=== PATIENT | female | born 1960 | race Caucasian/White ===

== ENCOUNTER 2023-07-11 16:10 | Outpatient (BNV) | payer BC, SELFPAY | END 2023-07-14 08:00 | PROVIDERS: Admitting Provider Psychiatry & Neurology Psychiatry; Visit Provider Internal Medicine Cardiovascular Disease | DX: I45.89 Other specified conduction disorders (principal) | CPT/HCPCS: 93010 ==

== ENCOUNTER 2023-07-11 16:10 | Inpatient (IN) | payer BC, SELFPAY ==
--- NOTE | ~2023-07-11 | XR_ITS ---
EXAMINATION: XR HAND, LEFT CLINICAL INFORMATION: Pain, trauma COMPARISON: None TECHNIQUE: 3 views of the hand FINDINGS: No fracture or dislocation. Mild degenerative changes of the distal interphalangeal joints and first interphalangeal joint. No cortical erosion. Soft tissues are unremarkable. XR/XR hand LT 2V IMPRESSION: 1. No fracture or dislocation. 2. Mild degenerative changes of the hand.
[2023-07-11 16:42] VITALS: BP 177/103; PULSE 80; RESP 18; TEMP 36.3; O2SAT 99
[2023-07-11 17:59] VITALS: BMI 25.2
[2023-07-11 18:00] VITALS: BP 161/88; PULSE 68
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
[2023-07-11 19:42] VITALS: BP 135/87; PULSE 78; RESP 18; TEMP 36.5; O2SAT 95
[2023-07-12 02:05] VITALS: BP 161/79; PULSE 71; RESP 18; TEMP 36.3; O2SAT 94
[2023-07-12] MEDS: ARIPiprazole 15 MG TABLET PO (05:31)
[2023-07-12] MEDS: Levothyroxine Sodium 100 MCG TABLET PO (06:23)
[2023-07-12 08:05] VITALS: BP 107/74; PULSE 113; RESP 17; TEMP 36.1; O2SAT 97
[2023-07-12 08:22] LABS: Estimated Average Glucose 108 mg/dL; Hemoglobin A1c % 5.4 % (<6.0)
[2023-07-12 08:37] LABS: Alanine Aminotransferase 40 U/L (0-31); Albumin Level 4.7 g/dL (3.5-5.0); Alkaline Phosphatase 87 U/L (39-117); Anion Gap 16 (12-20); Aspartate Amino Transferase 35 U/L (5-31); Bilirubin Total 0.8 mg/dL (0.0-1.0); Blood Urea Nitrogen 13 mg/dL (9-16); Calcium 10.4 mg/dL (8.4-10.2); Carbon Dioxide 25 mmol/L (22-29); Chloride 106 mmol/L (96-108); Cholesterol 166 mg/dL (<200); Creatinine Clr Calc Pharmacy 60.5; Estimated Glomerular Filt Rate > 60; Glucose Fasting 125 mg/dL (60-99); HDL Cholesterol 77 mg/dL (>40); LDL Cholesterol Calculated 63 mg/dL (<100); Sodium 143 mmol/L (135-145); Total Protein 7.8 g/dL (6.5-8.0); Triglycerides 131 mg/dL (<150)
[2023-07-12 08:52] LABS: Thyroid Stimulating Hormone 16.65 uIU/mL (0.32-4.0)
[2023-07-12 08:55] LABS: Vitamin B12 1400 pg/mL (200-900)
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
[2023-07-12 14:06] LABS: Free T4 (Free Thyroxine) 1.17 ng/dL (0.71-1.85)
--- NOTE | 2023-07-12 18:32 | PC.NURSE ---
Patient has been hypermanic and labile throughout the day. Had two notable outbursts today and refused all medications except her AM abilify. She reported to Social Work this evening that she will refuse all psych medications and the only thing she wants is for her abilify dosage to be increased. Request communicated to XANDER Macias via tiger text.
[2023-07-12 22:22] VITALS: BP 140/87; PULSE 119; RESP 17; TEMP 36.6; O2SAT 98
--- NOTE | 2023-07-13 00:11 | PC.RT ---
pt refused CPAP, will only use humidified
[2023-07-13] MEDS: Levothyroxine Sodium 100 MCG TABLET PO (05:42)
[2023-07-13 07:45] VITALS: BP 149/77; PULSE 99; RESP 18; TEMP 36.6; O2SAT 98
[2023-07-13] MEDS: LORazepam 2 MG/ML VIAL IM (09:18)
[2023-07-13] MEDS: OLANZapine 10 MG VIAL IM (09:18)
--- NOTE | 2023-07-13 09:44 | PC.NURSE ---
Addendum entered by Ирина Lopez RN 07/13/23 12:09: Pt assessed within hour of receiving IM medications. She is calmer, resting comfortable in her room. VSS Original Note: Pt hyperverbal, intrusive, refusing morning medication. playing with her stool in room put feces all over bathroom floor. IM zyprexa 10 mg and IM Ativan 2mg given with effect.
--- NOTE | 2023-07-13 10:21 | PM.EVENT ---
Event Note Date of Service: 07/13/23 Event Note: This morning pt continued to present as intrusive to peers, taking off clothes, smearing feces in her room. Not able to be redirected. Attempting to touch staff. Not accepting PRN medication or scheduled medications. She required Olanzapine 10mg IM and ativan 2mg IM. Pt assessed within hour of receiving IM medications. She is calmer, asleep in room. No difficulties breathing. VS stable. Time Spent With Patient Time: Total time managing care of this patient today ____ minutes.
--- NOTE | 2023-07-13 16:26 | HO.PSYCHPN ---
Documented by User: Nanette Macias NP 07/13/23 16:38 Subjective Subjective Date of Service: 07/13/23 Reason For Visit: Unspecified Bipolar and Related Disorder Subjective Notes: Conditional Voluntary Interim History: Reviewed Dr. Quesada. Patient was given IM medication this morning at 0918. Per Fara Herrera NP note: This morning pt continued to present as intrusive to peers, taking off clothes, smearing feces in her room. Not able to be redirected. Attempting to touch staff. Not accepting PRN medication or scheduled medications. She required Olanzapine 10mg IM and ativan 2mg IM. Pt assessed within hour of receiving IM medications. She is calmer, asleep in room. No difficulties breathing. VS stable. When T/W went to go meet with patient, pt was observed sleeping. Was not awakened d/t need for sleep since patient had reported not sleeping d/t florentin. Medication Compliance: No Review of Systems Constitutional: Reports as per HPI Eyes: Reports as per HPI Reports as per HPI Cardiovascular: Reports as per HPI Respiratory: Reports as per HPI Gastrointestinal: Reports as per HPI Musculoskeletal: Reports as per HPI Skin/Breast: Reports as per HPI Reports as per HPI Psychiatric: Reports as per HPI Endocrine: Reports as per HPI Hematologic/Lymphatic: Reports as per HPI Allergic/Immunologic: Reports as per HPI Mental Status Exam Mental Status Exam Narrative: per nursing report, pt presents hyperverbal, pressured and rapid speech, tangential, intrusive.disoganized. Diagnostics Vital Signs (24Hr): Vital Signs - 24 hr 07/12/23 22:22 07/13/23 07:45 Temperature 97.9 F 98 F Pulse Rate 119 H 99 Respiratory Rate 17 18 Blood Pressure 140/87 H 149/77 H Pulse Oximetry 98 98 Oxygen Delivery Method Room Air Room Air BMI result Body Mass Index 25.2 Labs 07/12/23 07:53 Labs: Laboratory Results - last 48 hr 07/12/23 07:53 Sodium 143 Potassium 4.0 Chloride 106 Carbon Dioxide 25 Anion Gap 16 BUN 13 Creatinine 0.91 Estim Creat Clear Calc 60.5 Estimated GFR > 60 Fasting Glucose 125 H Estimat Average Glucose 108 Hemoglobin A1c % 5.4 Calcium 10.4 H Total Bilirubin 0.8 AST 35 H ALT 40 H Alkaline Phosphatase 87 Total Protein 7.8 Albumin 4.7 Triglycerides 131 Cholesterol 166 LDL Cholesterol, Calc 63 HDL Cholesterol 77 Vitamin B12 1400 H TSH 16.65 H Free T4 1.17 Medications Medications Current Medications Acetaminophen (Acetaminophen 325 Mg Tablet) 650 mg PO Q6H PRN PRN Reason: Headache/Pain Mild Scale (1-3) Al Hydroxide/Mg Hydroxide (Magnesium Hydrox/Alum Hydrox 30 Ml Oral.Susp) 30 ml PO Q6H PRN PRN Reason: Heartburn/Nausea Albuterol Sulfate (Albuterol Sulfate 90 Mcg 8 Gm Inhaler) 2 puff INHALE Q4H PRN PRN Reason: Wheezing Amlodipine Besylate (Amlodipine Besylate 2.5 Mg Tablet) 2.5 mg PO DAILY [facility]; Protocol Last Admin: 07/13/23 09:20 Dose: Not Given Aripiprazole (Aripiprazole 15 Mg Tablet) 15 mg PO DAILY [facility] Last Admin: 07/13/23 09:21 Dose: Not Given Fluticasone/Umeclidinium/Vilanterol (Fluticasone/Umeclidinium/Vilanterol 200/62.5/25 Blst.W.Dev) 1 puff INHALE RDAILY [facility] Last Admin: 07/13/23 09:19 Dose: Not Given Hydroxyzine HCl (Hydroxyzine Hcl 25 Mg Tablet) 25 mg PO Q6H PRN PRN Reason: Anxiety Levothyroxine Sodium (Levothyroxine Sodium 100 Mcg Tablet) 100 mcg PO DAILY@0600 [facility] Last Admin: 07/13/23 05:42 Dose: 100 mcg Loratadine (Loratadine 10 Mg Tablet) 10 mg PO DAILY [facility] Last Admin: 07/13/23 09:21 Dose: Not Given Lorazepam (Lorazepam 0.5 Mg Tablet) 0.5 mg PO BID [facility] Last Admin: 07/13/23 09:21 Dose: Not Given Magnesium Hydroxide (Milk Of Magnesia 30 Ml Oral.Susp) 30 ml PO DAILY PRN PRN Reason: Constipation Oxcarbazepine (Oxcarbazepine 150 Mg Tablet) 150 mg PO BID [facility] Last Admin: 07/13/23 09:21 Dose: Not Given Risperidone (Risperidone 0.5 Mg Tablet) 0.5 mg PO BID [facility] Last Admin: 07/13/23 09:22 Dose: Not Given Trazodone HCl (Trazodone Hcl 50 Mg Tablet) 50 mg PO BEDTIME MRX1 PRN PRN Reason: Insomnia Allergies Allergies Allergy/AdvReac Type Severity Reaction Status Date / Time Penicillins Allergy Vomiting Verified 07/11/23 17:28 phenytoin Allergy Unknown Verified 07/11/23 17:30 rosuvastatin Allergy Chest Pain Verified 07/11/23 17:32 aspirin AdvReac Gastrointestinal Verified 07/11/23 17:33 Upset Assessment & Plan Assessment & Plan (1) Bipolar disorder: Code(s): F31.9 - Bipolar disorder, unspecified (2) PTSD (post-traumatic stress disorder): Status: Acute Code(s): F43.10 - Post-traumatic stress disorder, unspecified (3) Severe manic bipolar 1 disorder with psychotic behavior: Status: Acute Code(s): F31.2 - Bipolar disorder, current episode manic severe with psychotic features Plan Patient is a 63 year old female with hx of Bipolar d/o and PTSD who self presented to [facility] ER d/t disorganized thinking secondary to florentin. Plan: CV 15 minute safety checks continue home medications discharge planning Start: Ativan 0.5mg PO BID Risperidal 0.5mg PO BID Trileptal 150mg PO BID 07/12: Patient was given IM medication this morning at 0918. Per Fara Herrera NP note: This morning pt continued to present as intrusive to peers, taking off clothes, smearing feces in her room. Not able to be redirected. Attempting to touch staff. Not accepting PRN medication or scheduled medications. She required Olanzapine 10mg IM and ativan 2mg IM. Pt assessed within hour of receiving IM medications. She is calmer, asleep in room. No difficulties breathing. VS stable. When T/W went to go meet with patient, pt was observed sleeping. Was not awakened d/t need for sleep since patient had reported not sleeping d/t florentin. Continue to encourage medication compliance. Patient educated on: other (unable to educate d/t pt sleeping) Informed Consent: further education needed Reason for continued inpatient stay Substantial Risk for: med/psych decompensation Time Spent With Patient Time: Total time managing care of this patient today _15___ minutes. Documented by User: Livan Quesada MD 07/13/23 22:26 Subjective Subjective Reason For Visit: Unspecified Bipolar and Related Disorder Diagnostics Labs 07/12/23 07:53 Assessment & Plan Assessment & Plan (1) Bipolar disorder: Code(s): F31.9 - Bipolar disorder, unspecified (2) PTSD (post-traumatic stress disorder): Status: Acute Code(s): F43.10 - Post-traumatic stress disorder, unspecified (3) Severe manic bipolar 1 disorder with psychotic behavior: Status: Acute Code(s): F31.2 - Bipolar disorder, current episode manic severe with psychotic features Plan Patient is a 63 year old female with hx of Bipolar d/o and PTSD who self presented to [facility] ER d/t disorganized thinking secondary to florentin. Plan: CV 15 minute safety checks continue home medications discharge planning Start: Ativan 0.5mg PO BID Risperidal 0.5mg PO BID Trileptal 150mg PO BID 07/12: Patient was given IM medication this morning at 0918. Per Fara Herrera NP note: This morning pt continued to present as intrusive to peers, taking off clothes, smearing feces in her room. Not able to be redirected. Attempting to touch staff. Not accepting PRN medication or scheduled medications. She required Olanzapine 10mg IM and ativan 2mg IM. Pt assessed within hour of receiving IM medications. She is calmer, asleep in room. No difficulties breathing. VS stable. When T/W went to go meet with patient, pt was observed sleeping. Was not awakened d/t need for sleep since patient had reported not sleeping d/t florentin. Continue to encourage medication compliance. 07/13/23 Call placed to pts last know psych prvider pt unable to give hx tx response most likely will need lithium or dep for severe florentin was refusing to take meds that woukld need blood levels if willing to take might benefit from up to 30 mg did respond to olanzapine inj Reason for continued inpatient stay Substantial Risk for: inability to function and rapid decompensation Time Spent With Patient Time: Total time managing care of this patient today _25__ minutes.
[2023-07-13 18:00] VITALS: BP 124/76; PULSE 110; RESP 16; TEMP 36.4; O2SAT 97
[2023-07-13] MEDS: diphenhydrAMINE HCL 25 MG CAPSULE PO (22:08)
[2023-07-13] MEDS: Benztropine Mesylate 1 MG TABLET PO (22:08)
--- NOTE | 2023-07-13 22:18 | PC.NURSE ---
provider Nanette Macias contacted notified 1. Pt. has c/o of EPS 2. states that her tongue is heavy and she is having difficulty speaking. 3. pt is managing oral secreations/no drooling. 4. she is hyperverbal talking incessantly 5. she has a flight of ideas 6. she is presenting as manic 7. she has refused her scheduled medications trileptal/ativan/risperdal. 8. pt states medications cause resp depression. plan 1. benedryl 50 mg po now 2. cogentin 1 mg po now.
--- NOTE | 2023-07-13 23:04 | PC.NURSE ---
PT IS IN THE [place]. SHE IS CONTINUOUSLY TALKING. SHE IS BEING DISRUPTIVE TO PATIENTS AND STAFF. HER VOICE IS LOUD AND RAMBLING. SHE APPROACHES DIFFERENT NURSES AND ASKS THE SAME QUESTIONS REPEATEDLY ABOUT THE MEDICATIONS WHICH WERE ADMINISTERED TO HER. SHE HAS A RANT ABOUT THE SUBSTANDARD CARE SHE CLAIMS SHE IS RECEIVING. PT HAS A SMALL JENNA PAD WHICH SHE IS DOCUMENTING EVERYTHING THAT IS SAID TO HER. PT IS NOT REDIRECTABLE. .
[2023-07-14] MEDS: ARIPiprazole 15 MG TABLET PO (04:32)
[2023-07-14] MEDS: Levothyroxine Sodium 100 MCG TABLET PO (04:32)
--- NOTE | 2023-07-14 04:56 | PC.NURSE ---
pt has presented as hyperverbal and manifesting a flight of ideas. her mood is labile and she is guilty of staff splitting. she exited her bed and laid with a blanket on the bathroom floor. she has multiple somatic fixations. she is worrying about her hips/airway/and bowels. she had a large bowel movement which she coached along with a digital disimpaction. pt is insistent that a stool specimen be obtained and send to the lab. with great effort pt is persuaded to take her 0900 abilify now. she refuses tylenol and is requesting that a homeopathic pain medicine be used as a substitute.
--- NOTE | 2023-07-14 08:00 | ECG_ITS ---
Test Reason : QTC CHECK Blood Pressure : / mmHG Vent. Rate : 072 BPM Atrial Rate : 072 BPM P-R Int : 138 ms QRS Dur : 072 ms QT Int : 378 ms P-R-T Axes : 053 015 043 degrees QTc Int : 413 ms Normal sinus rhythm Normal ECG No previous ECGs available Referred By: Livan Quesada Electronically Signed By:ADRYAN AVITIA MD
--- NOTE | 2023-07-14 09:04 | PM.EVENT ---
Event Note Date of Service: 07/14/23 Event Note: Pt presents as loud, yelling, undressing, unable to be redirected, crawling around the floor, banging on tables, hurting both hands, not stopping with verbal redirection. Not accepting oral medications. Ordered Olanzpapine 10mg IM, ativan 2mg IM. Time Spent With Patient Time: Total time managing care of this patient today ____ minutes.
[2023-07-14] MEDS: LORazepam 2 MG/ML VIAL IM (09:18)
[2023-07-14] MEDS: OLANZapine 10 MG VIAL IM (09:18)
--- NOTE | 2023-07-14 09:36 | PC.NURSE ---
Patient refused morning medications. Observed in room on floor yelling and kicking wall. Also observed in hallway on stomach pulling herself along with arms. Chemically restrained at 0918 with Olanzapine 10mg and Ativan 2 mg. Patient tolerated well. Refused vital signs. Security present for administration.
[2023-07-14] MEDS: Acetaminophen 325 MG TABLET 650 MG PO (11:00)
--- NOTE | 2023-07-14 12:35 | PC.NURSE ---
Patient observed to be calm and cooperative following chemical restraint. Utilizing WC for C/O hip pain.
--- NOTE | 2023-07-14 13:36 | HO.PSYCHPN ---
Subjective Subjective Date of Service: 07/14/23 Reason For Visit: Unspecified Bipolar and Related Disorder Interim History: The patient seen psychiatric follow-up she is sedated sleeping when seen for much of the day. The patient had a dose I am olanzapine secondary to severe agitation and aggression. Call was placed to patient's outpatient psychiatrist no returned has been received patient had been Abilify 15 mg daily Medication Compliance: No Side effects from medications: Yes (sedated) Mental Status Exam Mental Status Exam Narrative: Patient lying in bed breathing comfortably not overly agitated or combative when seen No abnormal movements noted unable to evaluate issues related to suicide or homicidality Diagnostics Vital Signs (24Hr): Vital Signs - 24 hr 07/13/23 18:00 Temperature 97.6 F Pulse Rate 110 H Respiratory Rate 16 Blood Pressure 124/76 Pulse Oximetry 97 Oxygen Delivery Method Room Air BMI result Body Mass Index 25.2 Labs 07/12/23 07:53 Labs: Laboratory Results - last 48 hr 07/12/23 07:53 Free T4 1.17 Medications Medications Current Medications Acetaminophen (Acetaminophen 325 Mg Tablet) 650 mg PO Q6H PRN PRN Reason: Headache/Pain Mild Scale (1-3) Last Admin: 07/14/23 11:00 Dose: 650 mg Al Hydroxide/Mg Hydroxide (Magnesium Hydrox/Alum Hydrox 30 Ml Oral.Susp) 30 ml PO Q6H PRN PRN Reason: Heartburn/Nausea Albuterol Sulfate (Albuterol Sulfate 90 Mcg 8 Gm Inhaler) 2 puff INHALE Q4H PRN PRN Reason: Wheezing Amlodipine Besylate (Amlodipine Besylate 2.5 Mg Tablet) 2.5 mg PO DAILY [facility]; Protocol Last Admin: 07/14/23 09:40 Dose: Not Given Aripiprazole (Aripiprazole 20 Mg Tablet) 20 mg PO DAILY [facility] Last Admin: 07/14/23 09:41 Dose: Not Given Benztropine Mesylate (Benztropine Mesylate 1 Mg Tablet) 1 mg PO BID PRN PRN Reason: Extrapyramidal Effects Last Admin: 07/13/23 22:08 Dose: 1 mg Diphenhydramine HCl (Diphenhydramine Hcl 25 Mg Capsule) 25 mg PO Q6H PRN PRN Reason: EPS Last Admin: 07/13/23 22:08 Dose: 25 mg Divalproex Sodium (Divalproex Sodium Er 500 Mg Tab.Er.24h) 500 mg PO DAILY [facility] Last Admin: 07/14/23 09:40 Dose: Not Given Fluticasone/Umeclidinium/Vilanterol (Fluticasone/Umeclidinium/Vilanterol 200/62.5/25 Blst.W.Dev) 1 puff INHALE RDAILY [facility] Last Admin: 07/14/23 09:40 Dose: Not Given Hydroxyzine HCl (Hydroxyzine Hcl 25 Mg Tablet) 25 mg PO Q6H PRN PRN Reason: Anxiety Levothyroxine Sodium (Levothyroxine Sodium 100 Mcg Tablet) 100 mcg PO DAILY@0600 [facility] Last Admin: 07/14/23 04:32 Dose: 100 mcg Loratadine (Loratadine 10 Mg Tablet) 10 mg PO DAILY [facility] Last Admin: 07/14/23 09:40 Dose: Not Given Lorazepam (Lorazepam 0.5 Mg Tablet) 0.5 mg PO BID [facility] Last Admin: 07/14/23 09:40 Dose: Not Given Magnesium Hydroxide (Milk Of Magnesia 30 Ml Oral.Susp) 30 ml PO DAILY PRN PRN Reason: Constipation Olanzapine (Olanzapine Odt 10 Mg Tab.Rapdis) 10 mg TRANSLINGU BID PRN PRN Reason: florentin Trazodone HCl (Trazodone Hcl 50 Mg Tablet) 50 mg PO BEDTIME MRX1 PRN PRN Reason: Insomnia Allergies Allergies Allergy/AdvReac Type Severity Reaction Status Date / Time Penicillins Allergy Vomiting Verified 07/11/23 17:28 phenytoin Allergy Unknown Verified 07/11/23 17:30 rosuvastatin Allergy Chest Pain Verified 07/11/23 17:32 aspirin AdvReac Gastrointestinal Verified 07/11/23 17:33 Upset Assessment & Plan Assessment & Plan (1) Bipolar disorder: Qualifiers: Active/Remission status: currently active Current bipolar episode type: manic Current episode severity: severe Psychotic features: with psychotic features Qualified Code(s): F31.2 - Bipolar disorder, current episode manic severe with psychotic features Code(s): F31.9 - Bipolar disorder, unspecified (2) PTSD (post-traumatic stress disorder): Status: Acute Code(s): F43.10 - Post-traumatic stress disorder, unspecified Plan Patient is a 63 year old female with hx of Bipolar d/o and PTSD who self presented to [facility] ER d/t disorganized thinking secondary to florentin. Plan: CV 15 minute safety checks continue home medications discharge planning Start: Ativan 0.5mg PO BID Risperidal 0.5mg PO BID Trileptal 150mg PO BID 07/14/2023 Patient seen psychiatric follow-up had required IM olanzapine secondary to severe manic agitation and irritability. Encourage p.o. Julian and Anahi. Trying to obtain records from patient's prior treatment Trying to establish therapeutic relationship when possible Informed Consent: further education needed Reason for continued inpatient stay Substantial Risk for: inability to function, rapid decompensation and med/psych decompensation Time Spent With Patient Time: Total time managing care of this patient today _35___ minutes.
[2023-07-14 18:00] VITALS: BP 106/78; PULSE 97; RESP 18; TEMP 36.2; O2SAT 97
[2023-07-14] MEDS: Benztropine Mesylate 1 MG TABLET PO (22:14)
[2023-07-14] MEDS: Fluticasone/Umeclidinium/Vilanterol 200/62.5/25 BLST.W.DEV 1 PUFF INHALE (22:25)
[2023-07-15] MEDS: Ibuprofen 400 MG TABLET 800 MG PO ×2 (01:22→21:44)
[2023-07-15] MEDS: hydrOXYzine HCL 25 MG TABLET PO (02:57)
[2023-07-15] MEDS: Levothyroxine Sodium 100 MCG TABLET PO (05:10)
[2023-07-15] MEDS: ARIPiprazole 20 MG TABLET PO (05:11)
[2023-07-15] MEDS: Acetaminophen 325 MG TABLET 650 MG PO (05:18)
[2023-07-15 07:55] VITALS: BP 143/92; PULSE 98; RESP 20; TEMP 36.7; O2SAT 99
[2023-07-15 08:06] LABS: Free T4 (Free Thyroxine) 1.37 ng/dL (0.71-1.85)
--- NOTE | 2023-07-15 10:06 | P.PNPSI_ITS ---
Subjective Subjective Date of Service: 07/15/23 Reason For Visit: Unspecified Bipolar and Related Disorder Subjective Notes: Conditional Voluntary Interim History: Pt continues to present as labile, flight of ideas, dificult to follow due to florentin. Pt reports she has purpose given by God. She refuses adjustment to psych meds to better target florentin. She focuses on variety of random medical concerns from her stool, to her sputum. VS stable. disruptive at times. Review of Systems Review of Systems Unable to ascertain trustworthy ROS due to patient's mental status/florentin. Constitutional: Reports as per HPI Eyes: Reports as per HPI Reports as per HPI Cardiovascular: Reports as per HPI Respiratory: Reports as per HPI Gastrointestinal: Reports as per HPI Musculoskeletal: Reports as per HPI Skin/Breast: Reports as per HPI Reports as per HPI Psychiatric: Reports as per HPI Endocrine: Reports as per HPI Hematologic/Lymphatic: Reports as per HPI Allergic/Immunologic: Reports as per HPI Diagnostics Vital Signs (24Hr): Vital Signs - 24 hr 07/14/23 18:00 Temperature 97.2 F Pulse Rate 97 Respiratory Rate 18 Blood Pressure 106/78 Pulse Oximetry 97 Oxygen Delivery Method Room Air BMI result Body Mass Index 25.2 Labs 07/12/23 07:53 Labs: Laboratory Results - last 48 hr 07/15/23 07:18 Free T4 1.37 Medications Medications Current Medications Acetaminophen (Acetaminophen 325 Mg Tablet) 650 mg PO Q6H PRN PRN Reason: Headache/Pain Mild Scale (1-3) Last Admin: 07/15/23 05:18 Dose: 650 mg Al Hydroxide/Mg Hydroxide (Magnesium Hydrox/Alum Hydrox 30 Ml Oral.Susp) 30 ml PO Q6H PRN PRN Reason: Heartburn/Nausea Albuterol Sulfate (Albuterol Sulfate 90 Mcg 8 Gm Inhaler) 2 puff INHALE Q4H PRN PRN Reason: Wheezing Amlodipine Besylate (Amlodipine Besylate 2.5 Mg Tablet) 2.5 mg PO DAILY [facility]; Protocol Last Admin: 07/15/23 09:18 Dose: Not Given Aripiprazole (Aripiprazole 20 Mg Tablet) 20 mg PO DAILY [facility] Last Admin: 07/15/23 05:11 Dose: 20 mg Benztropine Mesylate (Benztropine Mesylate 1 Mg Tablet) 1 mg PO BID PRN PRN Reason: Extrapyramidal Effects Last Admin: 07/14/23 22:14 Dose: 1 mg Diphenhydramine HCl (Diphenhydramine Hcl 25 Mg Capsule) 25 mg PO Q6H PRN PRN Reason: EPS Last Admin: 07/13/23 22:08 Dose: 25 mg Divalproex Sodium (Divalproex Sodium Er 500 Mg Tab.Er.24h) 500 mg PO DAILY [facility] Last Admin: 07/15/23 09:18 Dose: Not Given Fluticasone/Umeclidinium/Vilanterol (Fluticasone/Umeclidinium/Vilanterol 200/62.5/25 Blst.W.Dev) 1 puff INHALE RDAILY [facility] Last Admin: 07/15/23 09:18 Dose: Not Given Hydroxyzine HCl (Hydroxyzine Hcl 25 Mg Tablet) 25 mg PO Q6H PRN PRN Reason: Anxiety Last Admin: 07/15/23 02:57 Dose: 25 mg Levothyroxine Sodium (Levothyroxine Sodium 100 Mcg Tablet) 100 mcg PO DAILY@0600 [facility] Last Admin: 07/15/23 05:10 Dose: 100 mcg Loratadine (Loratadine 10 Mg Tablet) 10 mg PO DAILY [facility] Last Admin: 07/15/23 09:18 Dose: Not Given Lorazepam (Lorazepam 0.5 Mg Tablet) 0.5 mg PO BID [facility] Last Admin: 07/15/23 09:18 Dose: Not Given Magnesium Hydroxide (Milk Of Magnesia 30 Ml Oral.Susp) 30 ml PO DAILY PRN PRN Reason: Constipation Olanzapine (Olanzapine Odt 10 Mg Tab.Rapdis) 10 mg TRANSLINGU BID PRN PRN Reason: florentin Trazodone HCl (Trazodone Hcl 50 Mg Tablet) 50 mg PO BEDTIME MRX1 PRN PRN Reason: Insomnia Allergies Allergies Allergy/AdvReac Type Severity Reaction Status Date / Time Penicillins Allergy Vomiting Verified 07/11/23 17:28 phenytoin Allergy Unknown Verified 07/11/23 17:30 rosuvastatin Allergy Chest Pain Verified 07/11/23 17:32 aspirin AdvReac Gastrointestinal Verified 07/11/23 17:33 Upset Assessment & Plan Assessment & Plan (1) Bipolar disorder: Qualifiers: Active/Remission status: currently active Current bipolar episode type: manic Current episode severity: severe Psychotic features: with psychotic features Qualified Code(s): F31.2 - Bipolar disorder, current episode manic severe with psychotic features Code(s): F31.9 - Bipolar disorder, unspecified (2) PTSD (post-traumatic stress disorder): Status: Acute Code(s): F43.10 - Post-traumatic stress disorder, unspecified Plan Patient is a 63 year old female with hx of Bipolar d/o and PTSD who self presented to [facility] ER d/t disorganized thinking secondary to florentin. Plan: 07/14 labile and disorganized, not open to adjustments in psychotropic medications. Reason for continued inpatient stay Substantial Risk for: inability to function Time Spent With Patient Time: Total time managing care of this patient today ____ minutes.
--- NOTE | 2023-07-15 16:59 | PC.NURSE ---
Pt reports she cant eat bread because she cannot swallow. Insole And Outsole Preparer noticed pt eating 1/2 of egg salad sandwich,without any difficulty and observed her putting a cookie and brownie in her pockets.
[2023-07-15 18:00] VITALS: BP 153/90; PULSE 88; RESP 18; TEMP 36.6; O2SAT 100
--- NOTE | 2023-07-15 22:25 | PC.NURSE ---
Addendum entered by Benedict Nixon RN 07/16/23 02:04: pt states events of injury to left hand occurred as the following. 1. pt experiencing extreme vertigo room spinning like an amusement park ride. 2. pt attempted to call nursing staff 3. call cleaning not working 4. pt slapped bed railing which was in an up right position to summon staff. 5. left hand suffered injury d/t trauma from slapping railing. pt had sudden c/o eps symptoms-tongue swelling and difficulty speaking-plan 1. cogentin 1 mg po 2. benedryl 25 mg po pt stating that she has an inflammatory condition and needs prednisone. her voice is hoarse and she is frequently expectorating small amounts of light nichols phlegm. pt states that the eps is decreasing. Original Note: pt found in room wandering about. she is talking continuously. content of speech is a flight of ideas. her main focus tonight deals with somatic complainants. she has pain in both her hips. she feels that her liver is getting larger and that there is a blockage in her intestine. she states that she injured her left hand punching the beds side rails. in a sudden movement pt removes a sealed fruit cup hidden in her night stand with feces. pt is convinced that there are seeds thriving in her stool. she has also saved a piece of stool in her toilet. pt is refusing schedule medications depakote and ativan. she states that she wants it documented that she has never taken these meds and they will most likely cause EPS. plan dr davison notified 1. pts musculoskeletal pain 2. pt has c/o of left hand pain post punch to side rail 3. pt has continous fixation with her stool be contaminated with seeds- plan a. ibuprofen 800 mg po stat b. will send stool spcimen for panel 3. xray left hand in the am.
[2023-07-16] MEDS: diphenhydrAMINE HCL 25 MG CAPSULE PO (01:53)
[2023-07-16] MEDS: Benztropine Mesylate 1 MG TABLET PO (01:53)
[2023-07-16 08:56] VITALS: BP 139/90; PULSE 106; RESP 16; TEMP 36.4; O2SAT 98
[2023-07-16 09:22] LABS: Adenovirus F 40/41 Not Detected (Not Detect.); Astrovirus Not Detected (Not Detect.); Campylobacter Not Detected (Not Detect.); Cryptosporidium Not Detected (Not Detect.); Cyclospora cayetanensis Not Detected (Not Detect.); E. coli EAEC Not Detected (Not Detect.); E. coli EPEC Not Detected (Not Detect.); E. coli ETEC Not Detected (Not Detect.); E. coli STEC Not Detected (Not Detect.); Entamoeba histolytica Not Detected (Not Detect.); Giardia lamblia Not Detected (Not Detect.); Norovirus GI/GII Not Detected (Not Detect.); Plesiomonas shigelloides Not Detected (Not Detect.); Rotavirus A Not Detected (Not Detect.); Salmonella Not Detected (Not Detect.); Sapovirus Not Detected (Not Detect.); Shigella sp./EIEC Not Detected (Not Detect.); Vibrio Not Detected (Not Detect.); Vibrio Cholerae Not Detected (Not Detect.); Yersinia enterocolitica Not Detected (Not Detect.)
[2023-07-16] MEDS: ARIPiprazole 20 MG TABLET PO (09:45)
[2023-07-16] MEDS: Fluticasone/Umeclidinium/Vilanterol 200/62.5/25 BLST.W.DEV 1 PUFF INHALE (09:50)
--- NOTE | 2023-07-16 13:30 | HO.PSYCHPN ---
Subjective Subjective Date of Service: 07/16/23 Reason For Visit: Unspecified Bipolar and Related Disorder Interim History: Pt continues to present as labile, flight of ideas, dificult to follow due to florentin. Pt yelling at staff, stating that she is dying. VS stable. She states proof of her medical illness is her sputum. her o2sat is stable on room air. Pt calling family member, asking them to call 911 and have ambulance send to the hospital. She reports she is at [facility]! Attempts to talk with pt about appropriate medication for bipolar treatment are not successful and pt continues to refuse mood stabilizer or any other antipsychotic. Review of Systems Review of Systems Unable to ascertain trustworthy ROS due to patient's mental status/florentin. Constitutional: Reports as per HPI Eyes: Reports as per HPI Reports as per HPI Cardiovascular: Reports as per HPI Respiratory: Reports as per HPI Gastrointestinal: Reports as per HPI Musculoskeletal: Reports as per HPI Skin/Breast: Reports as per HPI Reports as per HPI Psychiatric: Reports as per HPI Endocrine: Reports as per HPI Hematologic/Lymphatic: Reports as per HPI Allergic/Immunologic: Reports as per HPI Mental Status Exam Mental Status Exam Narrative: Appearance: wearing hospital gown, fair hygiene, in NAD behavior: guarded, irritable Psychomotor: intermittently agitated Speech: mumbles at times, pressured and hyperverbal, spontaneous TP: flight of ideas TC: somatic concerns, no insight into mental illness Mood: sick Affect: labile SI: denies HI: none VH/AH: none Delusions: oriental orthodox and somatic preoccupation Insight/judgment: impaired x 2 memory/cog: alert, not oriented to situation. Diagnostics Vital Signs (24Hr): Vital Signs - 24 hr 07/15/23 18:00 07/16/23 08:56 Temperature 97.8 F 97.5 F Pulse Rate 88 106 H Respiratory Rate 18 16 Blood Pressure 153/90 H 139/90 H Pulse Oximetry 100 98 Oxygen Delivery Method Room Air Room Air BMI result Body Mass Index 25.2 Labs 07/12/23 07:53 Labs: Laboratory Results - last 48 hr 07/15/23 07/15/23 07:18 22:00 Free T4 1.37 Stl C. cayetanensis PCR Not Detected Stool Rotavirus A PCR Not Detected Stl Adenov F 40/41 PCR Not Detected Stool Astrovirus (PCR) Not Detected Stool Campylobacter PCR Not Detected Stool Cryptosporidium PCR Not Detected Stl Sh Tox Pr E STEC PCR Not Detected Stool E coli O157 PCR Not applicable Stl Enterotoxigenic E PCR Not Detected Stool EPEC (PCR) Not Detected Stool EAEC (PCR) Not Detected Stl E. histolytica PCR Not Detected Stool Giardia Lamblia PCR Not Detected Stl P. shigelloides PCR Not Detected Stool Salmonella PCR Not Detected Stool Sapovirus (PCR) Not Detected Stl Shigella/EIEC PCR Not Detected St Y.enterocolitica PCR Not Detected Stool Vibrio (PCR) Not Detected Stl Vibrio cholerae PCR Not Detected Stl Norovirus GI/GII PCR Not Detected Imaging Radiology Impressions: ITS Impressions Hand X-Ray 07/16/23 08:53 IMPRESSION: 1. No fracture or dislocation. 2. Mild degenerative changes of the hand. Medications Medications Current Medications Acetaminophen (Acetaminophen 325 Mg Tablet) 650 mg PO Q6H PRN PRN Reason: Headache/Pain Mild Scale (1-3) Last Admin: 07/15/23 05:18 Dose: 650 mg Al Hydroxide/Mg Hydroxide (Magnesium Hydrox/Alum Hydrox 30 Ml Oral.Susp) 30 ml PO Q6H PRN PRN Reason: Heartburn/Nausea Albuterol Sulfate (Albuterol Sulfate 90 Mcg 8 Gm Inhaler) 2 puff INHALE Q4H PRN PRN Reason: Wheezing Amlodipine Besylate (Amlodipine Besylate 2.5 Mg Tablet) 2.5 mg PO DAILY [facility]; Protocol Last Admin: 07/16/23 09:50 Dose: Not Given Aripiprazole (Aripiprazole 20 Mg Tablet) 20 mg PO DAILY [facility] Last Admin: 07/16/23 09:45 Dose: 20 mg Benztropine Mesylate (Benztropine Mesylate 1 Mg Tablet) 1 mg PO BID PRN PRN Reason: Extrapyramidal Effects Last Admin: 07/16/23 01:53 Dose: 1 mg Diphenhydramine HCl (Diphenhydramine Hcl 25 Mg Capsule) 25 mg PO Q6H PRN PRN Reason: EPS Last Admin: 07/16/23 01:53 Dose: 25 mg Divalproex Sodium (Divalproex Sodium Er 500 Mg Tab.Er.24h) 500 mg PO BID [facility] Last Admin: 07/16/23 09:50 Dose: Not Given Fluticasone/Umeclidinium/Vilanterol (Fluticasone/Umeclidinium/Vilanterol 200/62.5/25 Blst.W.Dev) 1 puff INHALE RDAILY [facility] Last Admin: 07/16/23 09:50 Dose: 1 puff Hydroxyzine HCl (Hydroxyzine Hcl 25 Mg Tablet) 25 mg PO Q6H PRN PRN Reason: Anxiety Last Admin: 07/15/23 02:57 Dose: 25 mg Ibuprofen (Ibuprofen 400 Mg Tablet) 800 mg PO Q8H PRN PRN Reason: Pain, Moderate(Pain Scale 4-6) Levothyroxine Sodium (Levothyroxine Sodium 100 Mcg Tablet) 100 mcg PO DAILY@0600 [facility] Last Admin: 07/16/23 05:30 Dose: Not Given Loratadine (Loratadine 10 Mg Tablet) 10 mg PO DAILY [facility] Last Admin: 07/16/23 09:50 Dose: Not Given Lorazepam (Lorazepam 0.5 Mg Tablet) 0.5 mg PO BID [facility] Last Admin: 07/16/23 09:50 Dose: Not Given Magnesium Hydroxide (Milk Of Magnesia 30 Ml Oral.Susp) 30 ml PO DAILY PRN PRN Reason: Constipation Olanzapine (Olanzapine Odt 10 Mg Tab.Rapdis) 10 mg TRANSLINGU BID PRN PRN Reason: florentin Trazodone HCl (Trazodone Hcl 50 Mg Tablet) 50 mg PO BEDTIME MRX1 PRN PRN Reason: Insomnia Allergies Allergies Allergy/AdvReac Type Severity Reaction Status Date / Time Penicillins Allergy Vomiting Verified 07/11/23 17:28 phenytoin Allergy Unknown Verified 07/11/23 17:30 rosuvastatin Allergy Chest Pain Verified 07/11/23 17:32 aspirin AdvReac Gastrointestinal Verified 07/11/23 17:33 Upset Assessment & Plan Assessment & Plan (1) Bipolar disorder: Qualifiers: Active/Remission status: currently active Current bipolar episode type: manic Current episode severity: severe Psychotic features: with psychotic features Qualified Code(s): F31.2 - Bipolar disorder, current episode manic severe with psychotic features Code(s): F31.9 - Bipolar disorder, unspecified (2) PTSD (post-traumatic stress disorder): Status: Acute Code(s): F43.10 - Post-traumatic stress disorder, unspecified Plan Patient is a 63 year old female with hx of Bipolar d/o and PTSD who self presented to [facility] ER d/t disorganized thinking secondary to florentin. Plan: 1. pt continues to present as labile, disorganized. not accepting mood stabilizer or changes in medications. intrusive, loud. Reason for continued inpatient stay Substantial Risk for: inability to function Time Spent With Patient Time: Total time managing care of this patient today ____ minutes.
[2023-07-16 18:00] VITALS: BP 149/100; PULSE 113; RESP 18; TEMP 36.6; O2SAT 98
[2023-07-17] MEDS: diphenhydrAMINE HCL 25 MG CAPSULE PO ×2 (00:32→08:08)
[2023-07-17] MEDS: traZODone HCL 50 MG TABLET PO (00:32)
[2023-07-17] MEDS: hydrOXYzine HCL 25 MG TABLET PO (00:32)
[2023-07-17] MEDS: Ibuprofen 400 MG TABLET 800 MG PO (00:37)
[2023-07-17 03:51] VITALS: BP 144/79; PULSE 93; O2SAT 98
[2023-07-17] MEDS: Levothyroxine Sodium 100 MCG TABLET PO (05:09)
[2023-07-17 08:01] VITALS: BP 119/76; PULSE 110; RESP 16; TEMP 36.3; O2SAT 96
[2023-07-17] MEDS: ARIPiprazole 20 MG TABLET PO (08:04)
[2023-07-17] MEDS: Fluticasone/Umeclidinium/Vilanterol 200/62.5/25 BLST.W.DEV 1 PUFF INHALE (08:07)
[2023-07-17] MEDS: Haloperidol Lactate 5 MG/ML VIAL IM (09:14)
[2023-07-17] MEDS: LORazepam 2 MG/ML VIAL IM ×2 (09:14→17:07)
--- NOTE | 2023-07-17 11:11 | PC.NURSE ---
This morning, Edilia refused all 09:00 medications except Abilify 20mg. She was hyperverbal, speech was pressured, and she was not able to be redirected by staff. Later this morning, she was following a peer around the hallway and physically posturing at this peer. She was verbally threatening peer and refusing to remove herself from peer's physical space. Due to imminent harm to peer, Edilia was physically and chemically restrained and given haldol 5mg IM and ativan 2mg IM at 0914 and released from physical restraint at 09:15. She tolerated this intervention well. Will continue to monitor for safety and changes in behavior.
--- NOTE | 2023-07-17 11:19 | P.PNPSI_ITS ---
Subjective Subjective Date of Service: 07/17/23 Reason For Visit: Unspecified Bipolar and Related Disorder Subjective Notes: Conditional Voluntary Interim History: Pt continues to present as labile, loud and intrusive with peers. This morning again, pt unable to be redirected, intrusive, loud. She needed haldol 5mg IM and ativan 2mg IM. She presented slightly calmer and able to have a more meaningful conversation about her treatment. She agreed to take depakote, and received 1000mg. We discussed need for combination of mood stabilizer and antipsychotic. She is unsure whether to change to different antipsychotic or continue abilify. Still her thought process is with flight of ideas. Mental Status Exam Mental Status Exam Narrative: Appearance: wearing hospital gown, fair hygiene, in NAD behavior: guarded, irritable Psychomotor: intermittently agitated Speech: mumbles at times, pressured and hyperverbal, spontaneous TP: flight of ideas TC: somatic concerns, no insight into mental illness Mood: sick Affect: labile SI: denies HI: none VH/AH: none Delusions: tenriism and somatic preoccupation Insight/judgment: impaired x 2 memory/cog: alert, not oriented to situation. Diagnostics Vital Signs (24Hr): Vital Signs - 24 hr 07/16/23 18:00 07/17/23 03:51 07/17/23 08:01 Temperature 97.9 F 97.3 F Pulse Rate 113 H 93 110 H Respiratory Rate 18 16 Blood Pressure 149/100 H 144/79 H 119/76 Pulse Oximetry 98 98 96 Oxygen Delivery Method Room Air Room Air Room Air BMI result Body Mass Index 25.2 Labs 07/12/23 07:53 Labs: Laboratory Results - last 48 hr 07/15/23 22:00 Stl C. cayetanensis PCR Not Detected Stool Rotavirus A PCR Not Detected Stl Adenov F 40/41 PCR Not Detected Stool Astrovirus (PCR) Not Detected Stool Campylobacter PCR Not Detected Stool Cryptosporidium PCR Not Detected Stl Sh Tox Pr E STEC PCR Not Detected Stool E coli O157 PCR Not applicable Stl Enterotoxigenic E PCR Not Detected Stool EPEC (PCR) Not Detected Stool EAEC (PCR) Not Detected Stl E. histolytica PCR Not Detected Stool Giardia Lamblia PCR Not Detected Stl P. shigelloides PCR Not Detected Stool Salmonella PCR Not Detected Stool Sapovirus (PCR) Not Detected Stl Shigella/EIEC PCR Not Detected St Y.enterocolitica PCR Not Detected Stool Vibrio (PCR) Not Detected Stl Vibrio cholerae PCR Not Detected Stl Norovirus GI/GII PCR Not Detected Imaging Radiology Impressions: ITS Impressions Hand X-Ray 07/16/23 08:53 IMPRESSION: 1. No fracture or dislocation. 2. Mild degenerative changes of the hand. Medications Medications Current Medications Acetaminophen (Acetaminophen 325 Mg Tablet) 650 mg PO Q6H PRN PRN Reason: Headache/Pain Mild Scale (1-3) Last Admin: 07/15/23 05:18 Dose: 650 mg Al Hydroxide/Mg Hydroxide (Magnesium Hydrox/Alum Hydrox 30 Ml Oral.Susp) 30 ml PO Q6H PRN PRN Reason: Heartburn/Nausea Albuterol Sulfate (Albuterol Sulfate 90 Mcg 8 Gm Inhaler) 2 puff INHALE Q4H PRN PRN Reason: Wheezing Amlodipine Besylate (Amlodipine Besylate 2.5 Mg Tablet) 2.5 mg PO DAILY [facility]; Protocol Last Admin: 07/17/23 08:26 Dose: Not Given Aripiprazole (Aripiprazole 30 Mg Tablet) 30 mg PO DAILY [facility] Benztropine Mesylate (Benztropine Mesylate 1 Mg Tablet) 1 mg PO BID PRN PRN Reason: Extrapyramidal Effects Last Admin: 07/16/23 01:53 Dose: 1 mg Diphenhydramine HCl (Diphenhydramine Hcl 25 Mg Capsule) 25 mg PO Q6H PRN PRN Reason: EPS Last Admin: 07/17/23 08:08 Dose: 25 mg Divalproex Sodium (Divalproex Sodium Er 500 Mg Tab.Er.24h) 500 mg PO BID [facility] Last Admin: 07/17/23 08:27 Dose: Not Given Fluticasone/Umeclidinium/Vilanterol (Fluticasone/Umeclidinium/Vilanterol 200/62.5/25 Blst.W.Dev) 1 puff INHALE RDAILY [facility] Last Admin: 07/17/23 08:07 Dose: 1 puff Hydroxyzine HCl (Hydroxyzine Hcl 25 Mg Tablet) 25 mg PO Q6H PRN PRN Reason: Anxiety Last Admin: 07/17/23 00:32 Dose: 25 mg Ibuprofen (Ibuprofen 400 Mg Tablet) 800 mg PO Q8H PRN PRN Reason: Pain, Moderate(Pain Scale 4-6) Last Admin: 07/17/23 00:37 Dose: 800 mg Levothyroxine Sodium (Levothyroxine Sodium 100 Mcg Tablet) 100 mcg PO DAILY@0600 [facility] Last Admin: 07/17/23 05:09 Dose: 100 mcg Loratadine (Loratadine 10 Mg Tablet) 10 mg PO DAILY [facility] Last Admin: 07/17/23 08:27 Dose: Not Given Lorazepam (Lorazepam 0.5 Mg Tablet) 0.5 mg PO BID [facility] Last Admin: 07/17/23 08:27 Dose: Not Given Magnesium Hydroxide (Milk Of Magnesia 30 Ml Oral.Susp) 30 ml PO DAILY PRN PRN Reason: Constipation Olanzapine (Olanzapine Odt 10 Mg Tab.Rapdis) 10 mg TRANSLINGU BID PRN PRN Reason: florentin Trazodone HCl (Trazodone Hcl 50 Mg Tablet) 50 mg PO BEDTIME MRX1 PRN PRN Reason: Insomnia Last Admin: 07/17/23 00:32 Dose: 50 mg Allergies Allergies Allergy/AdvReac Type Severity Reaction Status Date / Time Penicillins Allergy Vomiting Verified 07/11/23 17:28 phenytoin Allergy Unknown Verified 07/11/23 17:30 rosuvastatin Allergy Chest Pain Verified 07/11/23 17:32 aspirin AdvReac Gastrointestinal Verified 07/11/23 17:33 Upset Assessment & Plan Assessment & Plan (1) Bipolar disorder: Qualifiers: Active/Remission status: currently active Current bipolar episode type: manic Current episode severity: severe Psychotic features: with psychotic features Qualified Code(s): F31.2 - Bipolar disorder, current episode manic severe with psychotic features Code(s): F31.9 - Bipolar disorder, unspecified (2) PTSD (post-traumatic stress disorder): Status: Acute Code(s): F43.10 - Post-traumatic stress disorder, unspecified Plan Patient is a 63 year old female with hx of Bipolar d/o and PTSD who self presented to [facility] ER d/t disorganized thinking secondary to florentin. Plan: 1. pt agreed to take depakote 1000mg. had chemical restrain this morning haldol 5mg IM, ativan 2mg IM. Reason for continued inpatient stay Substantial Risk for: inability to function Time Spent With Patient Time: Total time managing care of this patient today ____ minutes.
[2023-07-17] MEDS: Divalproex Sodium 500 MG TABLET.DR 1000 MG PO (15:15)
[2023-07-17] MEDS: OLANZapine 10 MG VIAL IM (17:06)
--- NOTE | 2023-07-17 18:03 | PC.NURSE ---
Pt hyperverbal, pressured speech, intrusive towards staff. posturing and screaming at nurse. Tried to redirect numerous times with no effect. Pt continued to postured at staff, Due to imminent harm to staff, Edilia was physically and chemically restrained and given Zyprexa 10mg IM 1706 and ativan 2mg IM at 1707 and released from physical restraint at 1707. She tolerated this intervention well pt resting comfortable. Will continue to monitor for safety and changes in behavior.
--- NOTE | 2023-07-17 18:58 | PC.NURSE ---
Hospitalist Dr no and evening master control supervisor notified of restraint,
[2023-07-18] MEDS: Levothyroxine Sodium 100 MCG TABLET PO (05:45)
[2023-07-18 06:00] VITALS: BP 118/64; PULSE 94; RESP 16; TEMP 36.2; O2SAT 97
[2023-07-18] MEDS: OLANZapine ODT 10 MG TAB.RAPDIS TRANSLINGU (06:35)
[2023-07-18] MEDS: Benztropine Mesylate 1 MG TABLET PO (06:47)
--- NOTE | 2023-07-18 06:47 | PC.NURSE ---
Patient woke up around 6 pm, hyper-verbal and tangential with numerous questions, expresses grievances related to chemical restraint, morning Synthroid and prn Olanzapine 10 mg administered at 0635 pending effect, patient is observed stuttering which she thinks is from the medication prn Benztropin 1 mg administered 0647 pending effect, will continue to monitor
--- NOTE | 2023-07-18 09:01 | P.PNPSI_ITS ---
Subjective Subjective Date of Service: 07/18/23 Reason For Visit: Unspecified Bipolar and Related Disorder Subjective Notes: Conditional Voluntary Interim History: Pt slept most of the night after receiving second IM due to becoming very agitated and going after another pt yesterday. This morning, pt presents slightly calmer, but still with significant flight of ideas, difficult to redirect. She reports she wants to go for treatment outpatient. Labile at times. She did eat breakfast and lunch. declined depakote this morning encouraged to take it for mood stabilization. Review of Systems Review of Systems Unable to ascertain trustworthy ROS due to patient's mental status/florentin. Constitutional: Reports as per HPI Eyes: Reports as per HPI Reports as per HPI Cardiovascular: Reports as per HPI Respiratory: Reports as per HPI Gastrointestinal: Reports as per HPI Musculoskeletal: Reports as per HPI Skin/Breast: Reports as per HPI Reports as per HPI Psychiatric: Reports as per HPI Endocrine: Reports as per HPI Hematologic/Lymphatic: Reports as per HPI Allergic/Immunologic: Reports as per HPI Mental Status Exam Mental Status Exam Narrative: Appearance: wearing hospital gown, fair hygiene, in NAD behavior: guarded, irritable Psychomotor: intermittently agitated Speech: mumbles at times, pressured and hyperverbal, spontaneous TP: flight of ideas TC: somatic concerns, no insight into mental illness Mood: sick Affect: labile SI: denies HI: none VH/AH: none Delusions: adventism and somatic preoccupation Insight/judgment: impaired x 2 memory/cog: alert, not oriented to situation. Diagnostics Vital Signs (24Hr): Vital Signs - 24 hr 07/18/23 06:00 Temperature 97.2 F Pulse Rate 94 Respiratory Rate 16 Blood Pressure 118/64 Pulse Oximetry 97 Oxygen Delivery Method Room Air BMI result Body Mass Index 25.2 Labs 07/12/23 07:53 Labs: Laboratory Results - last 48 hr 07/15/23 22:00 Stl C. cayetanensis PCR Not Detected Stool Rotavirus A PCR Not Detected Stl Adenov F 40/41 PCR Not Detected Stool Astrovirus (PCR) Not Detected Stool Campylobacter PCR Not Detected Stool Cryptosporidium PCR Not Detected Stl Sh Tox Pr E STEC PCR Not Detected Stool E coli O157 PCR Not applicable Stl Enterotoxigenic E PCR Not Detected Stool EPEC (PCR) Not Detected Stool EAEC (PCR) Not Detected Stl E. histolytica PCR Not Detected Stool Giardia Lamblia PCR Not Detected Stl P. shigelloides PCR Not Detected Stool Salmonella PCR Not Detected Stool Sapovirus (PCR) Not Detected Stl Shigella/EIEC PCR Not Detected St Y.enterocolitica PCR Not Detected Stool Vibrio (PCR) Not Detected Stl Vibrio cholerae PCR Not Detected Stl Norovirus GI/GII PCR Not Detected Imaging Radiology Impressions: ITS Impressions Hand X-Ray 07/16/23 08:53 IMPRESSION: 1. No fracture or dislocation. 2. Mild degenerative changes of the hand. Medications Medications Current Medications Acetaminophen (Acetaminophen 325 Mg Tablet) 650 mg PO Q6H PRN PRN Reason: Headache/Pain Mild Scale (1-3) Last Admin: 07/15/23 05:18 Dose: 650 mg Al Hydroxide/Mg Hydroxide (Magnesium Hydrox/Alum Hydrox 30 Ml Oral.Susp) 30 ml PO Q6H PRN PRN Reason: Heartburn/Nausea Albuterol Sulfate (Albuterol Sulfate 90 Mcg 8 Gm Inhaler) 2 puff INHALE Q4H PRN PRN Reason: Wheezing Amlodipine Besylate (Amlodipine Besylate 2.5 Mg Tablet) 2.5 mg PO DAILY [facility]; Protocol Last Admin: 07/18/23 08:32 Dose: Not Given Aripiprazole (Aripiprazole 30 Mg Tablet) 30 mg PO DAILY [facility] Last Admin: 07/18/23 08:32 Dose: Not Given Benztropine Mesylate (Benztropine Mesylate 1 Mg Tablet) 1 mg PO BID PRN PRN Reason: Extrapyramidal Effects Last Admin: 07/18/23 06:47 Dose: 1 mg Clonazepam (Clonazepam 1 Mg Tablet) 2 mg PO BEDTIME [facility] Last Admin: 07/17/23 22:32 Dose: Not Given Divalproex Sodium (Divalproex Sodium 500 Mg Tablet.Dr) 500 mg PO BID [facility] Last Admin: 07/18/23 08:32 Dose: Not Given Fluticasone/Umeclidinium/Vilanterol (Fluticasone/Umeclidinium/Vilanterol 200/62.5/25 Blst.W.Dev) 1 puff INHALE RDAILY [facility] Last Admin: 07/18/23 08:33 Dose: Not Given Hydroxyzine HCl (Hydroxyzine Hcl 25 Mg Tablet) 25 mg PO Q6H PRN PRN Reason: Anxiety Last Admin: 07/17/23 00:32 Dose: 25 mg Ibuprofen (Ibuprofen 400 Mg Tablet) 800 mg PO Q8H PRN PRN Reason: Pain, Moderate(Pain Scale 4-6) Last Admin: 07/17/23 00:37 Dose: 800 mg Levothyroxine Sodium (Levothyroxine Sodium 100 Mcg Tablet) 100 mcg PO DAILY@0600 [facility] Last Admin: 07/18/23 05:45 Dose: 100 mcg Loratadine (Loratadine 10 Mg Tablet) 10 mg PO DAILY [facility] Last Admin: 07/18/23 08:33 Dose: Not Given Magnesium Hydroxide (Milk Of Magnesia 30 Ml Oral.Susp) 30 ml PO DAILY PRN PRN Reason: Constipation Olanzapine (Olanzapine Odt 10 Mg Tab.Rapdis) 10 mg TRANSLINGU BID PRN PRN Reason: florentin Last Admin: 07/18/23 06:35 Dose: 10 mg Trazodone HCl (Trazodone Hcl 50 Mg Tablet) 50 mg PO BEDTIME MRX1 PRN PRN Reason: Insomnia Last Admin: 07/17/23 00:32 Dose: 50 mg Allergies Allergies Allergy/AdvReac Type Severity Reaction Status Date / Time Penicillins Allergy Vomiting Verified 07/11/23 17:28 phenytoin Allergy Unknown Verified 07/11/23 17:30 rosuvastatin Allergy Chest Pain Verified 07/11/23 17:32 aspirin AdvReac Gastrointestinal Verified 07/11/23 17:33 Upset Assessment & Plan Assessment & Plan (1) Bipolar disorder: Qualifiers: Active/Remission status: currently active Current bipolar episode type: manic Current episode severity: severe Psychotic features: with psychotic features Qualified Code(s): F31.2 - Bipolar disorder, current episode manic severe with psychotic features Code(s): F31.9 - Bipolar disorder, unspecified (2) PTSD (post-traumatic stress disorder): Status: Acute Code(s): F43.10 - Post-traumatic stress disorder, unspecified Plan Patient is a 63 year old female with hx of Bipolar d/o and PTSD who self presented to [facility] ER d/t disorganized thinking secondary to florentin. Plan: 07/16. pt agreed to take depakote 1000mg. had chemical restrain this morning haldol 5mg IM, ativan 2mg IM. 07/17 received another IM olanzapine 10mg and ativan 2mg IM on 07/16 at around 5pm due to combative behaviors towards peer. continue current plan. Reason for continued inpatient stay Substantial Risk for: inability to function Time Spent With Patient Time: Total time managing care of this patient today ____ minutes.
[2023-07-18 18:00] VITALS: BP 128/72; PULSE 101; RESP 20; TEMP 36.4; O2SAT 98
[2023-07-18] MEDS: Divalproex Sodium 500 MG TABLET.DR PO (22:07)
[2023-07-18 23:39] VITALS: RESP 20
[2023-07-19] MEDS: Ibuprofen 400 MG TABLET 800 MG PO (01:15)
[2023-07-19 06:00] VITALS: BP 157/88; PULSE 98; RESP 18; TEMP 36.3; O2SAT 100
--- NOTE | 2023-07-19 08:51 | HO.PSYCHPN ---
Subjective Subjective Date of Service: 07/19/23 Reason For Visit: Unspecified Bipolar and Related Disorder Subjective Notes: Conditional Voluntary and 3 Day Interim History: The nursing staff reported the patient signed a 3 day notice, she used not to sleep for several days in a row but last night she slept for 4 hours. She took medications with a lot of encouragement today. On interview the patient was over talkative, with flight of ideas, she was able to recognize that she was grossly manic. She reported that since Depakote was started it has been better on her flight of ideas and impulsiveness. She was requesting about her discharge. Mental Status Exam Mental Status Exam Patient Appearance: Well Grooomed Patient Orientation: Person, Place and Situation Level of Consciousness: Awake and Restless Patient Behavior: Guarded and Talkative Mood Description: Calm and Blunted Affect Description: Labile Patient Cognition Impaired: No Ability to Follow Directions: Good Speech Pattern: Clear Hallucinations: None Delusions: Grandiose and Ideas of Reference Thought Process: Racing and Distracted Thought Content: positive for Racing and positive for Linear Judgement: Poor Diagnostics Vital Signs (24Hr): Vital Signs - 24 hr 07/18/23 18:00 07/18/23 23:39 Temperature 97.5 F Pulse Rate 101 H Respiratory Rate 20 20 Blood Pressure 128/72 Pulse Oximetry 98 Oxygen Delivery Method Room Air BMI result Body Mass Index 25.2 Labs 07/12/23 07:53 Imaging Radiology Impressions: ITS Impressions Hand X-Ray 07/16/23 08:53 IMPRESSION: 1. No fracture or dislocation. 2. Mild degenerative changes of the hand. Medications Medications Current Medications Acetaminophen (Acetaminophen 325 Mg Tablet) 650 mg PO Q6H PRN PRN Reason: Headache/Pain Mild Scale (1-3) Last Admin: 07/15/23 05:18 Dose: 650 mg Al Hydroxide/Mg Hydroxide (Magnesium Hydrox/Alum Hydrox 30 Ml Oral.Susp) 30 ml PO Q6H PRN PRN Reason: Heartburn/Nausea Albuterol Sulfate (Albuterol Sulfate 90 Mcg 8 Gm Inhaler) 2 puff INHALE Q4H PRN PRN Reason: Wheezing Amlodipine Besylate (Amlodipine Besylate 2.5 Mg Tablet) 2.5 mg PO DAILY [facility]; Protocol Last Admin: 07/18/23 08:32 Dose: Not Given Aripiprazole (Aripiprazole 30 Mg Tablet) 30 mg PO DAILY [facility] Last Admin: 07/18/23 08:32 Dose: Not Given Benztropine Mesylate (Benztropine Mesylate 1 Mg Tablet) 1 mg PO BID PRN PRN Reason: Extrapyramidal Effects Last Admin: 07/18/23 06:47 Dose: 1 mg Clonazepam (Clonazepam 1 Mg Tablet) 2 mg PO BEDTIME [facility] Last Admin: 07/18/23 22:09 Dose: Not Given Divalproex Sodium (Divalproex Sodium 500 Mg Tablet.Dr) 500 mg PO BID [facility] Last Admin: 07/18/23 22:07 Dose: 500 mg Fluticasone/Umeclidinium/Vilanterol (Fluticasone/Umeclidinium/Vilanterol 200/62.5/25 Blst.W.Dev) 1 puff INHALE RDAILY [facility] Last Admin: 07/18/23 08:33 Dose: Not Given Hydroxyzine HCl (Hydroxyzine Hcl 25 Mg Tablet) 25 mg PO Q6H PRN PRN Reason: Anxiety Last Admin: 07/17/23 00:32 Dose: 25 mg Ibuprofen (Ibuprofen 400 Mg Tablet) 800 mg PO Q8H PRN PRN Reason: Pain, Moderate(Pain Scale 4-6) Last Admin: 07/19/23 01:15 Dose: 800 mg Levothyroxine Sodium (Levothyroxine Sodium 100 Mcg Tablet) 100 mcg PO DAILY@0600 [facility] Last Admin: 07/19/23 06:18 Dose: Not Given Loratadine (Loratadine 10 Mg Tablet) 10 mg PO DAILY [facility] Last Admin: 07/18/23 08:33 Dose: Not Given Magnesium Hydroxide (Milk Of Magnesia 30 Ml Oral.Susp) 30 ml PO DAILY PRN PRN Reason: Constipation Olanzapine (Olanzapine Odt 10 Mg Tab.Rapdis) 10 mg TRANSLINGU BID PRN PRN Reason: florentin Last Admin: 07/18/23 06:35 Dose: 10 mg Trazodone HCl (Trazodone Hcl 50 Mg Tablet) 50 mg PO BEDTIME MRX1 PRN PRN Reason: Insomnia Last Admin: 07/17/23 00:32 Dose: 50 mg Allergies Allergies Allergy/AdvReac Type Severity Reaction Status Date / Time Penicillins Allergy Vomiting Verified 07/11/23 17:28 phenytoin Allergy Unknown Verified 07/11/23 17:30 rosuvastatin Allergy Chest Pain Verified 07/11/23 17:32 aspirin AdvReac Gastrointestinal Verified 07/11/23 17:33 Upset Assessment & Plan Assessment & Plan (1) Bipolar disorder: Qualifiers: Active/Remission status: currently active Current bipolar episode type: manic Current episode severity: severe Psychotic features: with psychotic features Qualified Code(s): F31.2 - Bipolar disorder, current episode manic severe with psychotic features Code(s): F31.9 - Bipolar disorder, unspecified (2) PTSD (post-traumatic stress disorder): Status: Acute Code(s): F43.10 - Post-traumatic stress disorder, unspecified Plan Patient is a 63 year old female with hx of Bipolar d/o and PTSD who self presented to [facility] ER d/t disorganized thinking secondary to florentin. Plan: 07/16. pt agreed to take depakote 1000mg. had chemical restrain this morning haldol 5mg IM, ativan 2mg IM. 07/17 received another IM olanzapine 10mg and ativan 2mg IM on 07/16 at around 5pm due to combative behaviors towards peer. continue current plan. Increase Depakote 500 qam and 750 mg qhs, rest the same Reason for continued inpatient stay Substantial Risk for: inability to function, rapid decompensation and med/psych decompensation Time Spent With Patient Time: Total time managing care of this patient today __20__ minutes.
[2023-07-19] MEDS: Divalproex Sodium 500 MG TABLET.DR PO (09:04)
[2023-07-19] MEDS: ARIPiprazole 30 MG TABLET PO (09:04)
--- NOTE | 2023-07-19 09:59 | PC.NURSE ---
Edilia declined all morning meds with the exception of Abilify and Depakote; MD Natarajan notified.
[2023-07-19] MEDS: Divalproex Sodium 250 MG TABLET.DR 750 MG PO (20:55)
[2023-07-20 07:50] VITALS: BP 119/68; PULSE 101; RESP 16; TEMP 36.6; O2SAT 98
[2023-07-20] MEDS: ARIPiprazole 30 MG TABLET PO (08:50)
[2023-07-20] MEDS: Divalproex Sodium 500 MG TABLET.DR PO (08:52)
[2023-07-20 09:53] VITALS: BMI 25.7
--- NOTE | 2023-07-20 13:20 | PC.NURSE ---
Addendum entered by Marina Jackson RN 07/20/23 15:34: covid swab resulted negative. Edilia has been in her room, asleep since swab was obtained. Original Note: Edilia is complaining of not feeling well . She was requesting a covid test, because I think I have it. . She became increasingly irritable and placed herself on the floor outside the OT office. She refused to get up with staff encouragement. Security was called for assistance. They arrived and spoke with Edilia, support provided and Edilia walked on her own back to her room with encouragement. This telegraphic typewriter repairer provided a covid swab as ordered and sent it to the lab. Edilia is lying in bed, in apppropriate behavioral control. Plan of care remains ongoing.
[2023-07-20 13:44] LABS: COVID-19 Test Negative (Negative); IDNOW Serial# 152EDE1D
--- NOTE | 2023-07-20 15:34 | HO.PSYCHPN ---
Subjective Subjective Date of Service: 07/20/23 Reason For Visit: Unspecified Bipolar and Related Disorder Subjective Notes: Section 7, Section 8, Conditional Voluntary and 3 Day Interim History: The patient had been agitated around noon time, she put herself on the floor she was demanding with fast speech, stating that she has COVID and demanding COVID testing. We need to call security risk analyst her to her room and she needed p.r.n. medication. She remains grossly manic and she wants to be discharged today. We filed for Section 7 and 8. Mental Status Exam Mental Status Exam Patient Appearance: Appropriate Patient Orientation: Person Level of Consciousness: Awake and Restless Patient Behavior: Appropriate, Guarded, Aggressive and Anxious Mood Description: Labile Affect Description: Hostile Patient Cognition Impaired: No Ability to Follow Directions: Poor Speech Pattern: Rapid and Pressured Hallucinations: None Delusions: Grandiose and Ideas of Reference Thought Process: Racing and Illogical Thought Content: positive for Poverty of Content and positive for Disorganized Judgement: Poor Diagnostics Vital Signs (24Hr): Vital Signs - 24 hr 07/20/23 07:50 Temperature 97.9 F Pulse Rate 101 H Respiratory Rate 16 Blood Pressure 119/68 Pulse Oximetry 98 Oxygen Delivery Method Room Air BMI result Body Mass Index 25.7 Labs 07/12/23 07:53 Labs: Laboratory Results - last 48 hr 07/20/23 13:00 COVID-19 ([place]) Negative COVID-19 Clin Com See Note Imaging Radiology Impressions: ITS Impressions Hand X-Ray 07/16/23 08:53 IMPRESSION: 1. No fracture or dislocation. 2. Mild degenerative changes of the hand. Medications Medications Current Medications Acetaminophen (Acetaminophen 325 Mg Tablet) 650 mg PO Q6H PRN PRN Reason: Headache/Pain Mild Scale (1-3) Last Admin: 07/15/23 05:18 Dose: 650 mg Al Hydroxide/Mg Hydroxide (Magnesium Hydrox/Alum Hydrox 30 Ml Oral.Susp) 30 ml PO Q6H PRN PRN Reason: Heartburn/Nausea Albuterol Sulfate (Albuterol Sulfate 90 Mcg 8 Gm Inhaler) 2 puff INHALE Q4H PRN PRN Reason: Wheezing Amlodipine Besylate (Amlodipine Besylate 2.5 Mg Tablet) 2.5 mg PO DAILY [facility]; Protocol Last Admin: 07/20/23 08:56 Dose: Not Given Aripiprazole (Aripiprazole 30 Mg Tablet) 30 mg PO DAILY [facility] Last Admin: 07/20/23 08:50 Dose: 30 mg Benztropine Mesylate (Benztropine Mesylate 1 Mg Tablet) 1 mg PO BID PRN PRN Reason: Extrapyramidal Effects Last Admin: 07/18/23 06:47 Dose: 1 mg Clonazepam (Clonazepam 1 Mg Tablet) 2 mg PO BEDTIME [facility] Last Admin: 07/19/23 20:55 Dose: Not Given Divalproex Sodium (Divalproex Sodium 500 Mg Tablet.Dr) 500 mg PO DAILY [facility] Last Admin: 07/20/23 08:52 Dose: 500 mg Divalproex Sodium (Divalproex Sodium 250 Mg Tablet.Dr) 750 mg PO BEDTIME [facility] Last Admin: 07/19/23 20:55 Dose: 750 mg Fluticasone/Umeclidinium/Vilanterol (Fluticasone/Umeclidinium/Vilanterol 200/62.5/25 Blst.W.Dev) 1 puff INHALE RDAILY [facility] Last Admin: 07/20/23 08:57 Dose: Not Given Hydroxyzine HCl (Hydroxyzine Hcl 25 Mg Tablet) 25 mg PO Q6H PRN PRN Reason: Anxiety Last Admin: 07/17/23 00:32 Dose: 25 mg Ibuprofen (Ibuprofen 400 Mg Tablet) 800 mg PO Q8H PRN PRN Reason: Pain, Moderate(Pain Scale 4-6) Last Admin: 07/19/23 01:15 Dose: 800 mg Levothyroxine Sodium (Levothyroxine Sodium 100 Mcg Tablet) 100 mcg PO DAILY@0600 [facility] Last Admin: 07/20/23 05:57 Dose: Not Given Loratadine (Loratadine 10 Mg Tablet) 10 mg PO DAILY [facility] Last Admin: 07/20/23 08:57 Dose: Not Given Magnesium Hydroxide (Milk Of Magnesia 30 Ml Oral.Susp) 30 ml PO DAILY PRN PRN Reason: Constipation Olanzapine (Olanzapine Odt 10 Mg Tab.Rapdis) 10 mg TRANSLINGU BID PRN PRN Reason: florentin Last Admin: 07/18/23 06:35 Dose: 10 mg Trazodone HCl (Trazodone Hcl 50 Mg Tablet) 50 mg PO BEDTIME MRX1 PRN PRN Reason: Insomnia Last Admin: 07/17/23 00:32 Dose: 50 mg Allergies Allergies Allergy/AdvReac Type Severity Reaction Status Date / Time Penicillins Allergy Vomiting Verified 07/11/23 17:28 phenytoin Allergy Unknown Verified 07/11/23 17:30 rosuvastatin Allergy Chest Pain Verified 07/11/23 17:32 aspirin AdvReac Gastrointestinal Verified 07/11/23 17:33 Upset Assessment & Plan Assessment & Plan (1) Bipolar disorder: Qualifiers: Active/Remission status: currently active Current bipolar episode type: manic Current episode severity: severe Psychotic features: with psychotic features Qualified Code(s): F31.2 - Bipolar disorder, current episode manic severe with psychotic features Code(s): F31.9 - Bipolar disorder, unspecified (2) PTSD (post-traumatic stress disorder): Status: Acute Code(s): F43.10 - Post-traumatic stress disorder, unspecified Plan Patient is a 63 year old female with hx of Bipolar d/o and PTSD who self presented to [facility] ER d/t disorganized thinking secondary to florentin. Plan: 07/16. pt agreed to take depakote 1000mg. had chemical restrain this morning haldol 5mg IM, ativan 2mg IM. 07/17 received another IM olanzapine 10mg and ativan 2mg IM on 07/16 at around 5pm due to combative behaviors towards peer. continue current plan. Increase Depakote 500 qam and 750 mg qhs, rest the same on July 18. Section 7 and 8 filed on July 19. Reason for continued inpatient stay Substantial Risk for: inability to function, rapid decompensation and med/psych decompensation Time Spent With Patient Time: Total time managing care of this patient today __20__ minutes.
[2023-07-20] MEDS: Ibuprofen 400 MG TABLET 800 MG PO (17:07)
[2023-07-20 18:00] VITALS: BP 179/77; PULSE 104; RESP 16; TEMP 36.5; O2SAT 97
--- NOTE | 2023-07-20 18:56 | PC.NURSE ---
Patient slept after lunch for a few hours. She woke, went into the corner of her bathroom and was screaming to have someone call her brother. She is hyperverbal, voicing several somatic complaints and wants to speak to a doctor. She also wanted Motrin because of moderate right shoulder and hip pain. Motrin and two sandwiches given which patient ate without difficulty. Patient refused to take Atarax when offered for anxiety.
[2023-07-20] MEDS: Divalproex Sodium 250 MG TABLET.DR 750 MG PO (21:12)
[2023-07-21 06:00] VITALS: BP 111/72; PULSE 82; RESP 18; TEMP 36.7; O2SAT 97
[2023-07-21] MEDS: Levothyroxine Sodium 100 MCG TABLET PO (06:00)
--- NOTE | 2023-07-21 10:26 | P.PNPSI_ITS ---
Subjective Subjective Date of Service: 07/21/23 Reason For Visit: Unspecified Bipolar and Related Disorder Subjective Notes: Section 7, Section 8, Conditional Voluntary and 3 Day Interim History: The nursing staff reported the patient had been hyperverbal, she tested COVID negative, has been eating well and she slept only 2 hours. She remains manic with pressured speech and flight of ideas. Today in the morning she refused to take her Depakote stating that she wants to talk with the psychiatrist 1st. On interview I explained that she needs to be compliant that at this moment her lack of insight and poor compliance does not help her for an early discharge. She states that she feels sedated with Depakote. She has not responding to Abilify, she had been taking Abilify 30 mg and still she is manic. I offer her to change to different medications but she was unable to give a clear answer due to florentin and racing thoughts.. Mental Status Exam Mental Status Exam Patient Appearance: Appropriate Patient Orientation: Person and Situation Level of Consciousness: Awake and Appropriate Patient Behavior: Guarded and Passive Mood Description: Withdrawn Affect Description: Constricted Ability to Follow Directions: Poor Speech Pattern: Rapid Hallucinations: None Delusions: Grandiose and Ideas of Reference Thought Process: Racing and Distracted Thought Content: positive for Loving and positive for Poverty of Content Judgement: Poor Diagnostics Vital Signs (24Hr): Vital Signs - 24 hr 07/20/23 18:00 07/21/23 06:00 Temperature 97.7 F 98.1 F Pulse Rate 104 H 82 Respiratory Rate 16 18 Blood Pressure 179/77 H 111/72 Pulse Oximetry 97 97 Oxygen Delivery Method Room Air Room Air BMI result Body Mass Index 25.7 Labs 07/12/23 07:53 Labs: Laboratory Results - last 48 hr 07/20/23 13:00 COVID-19 ([place]) Negative COVID-19 Clin Com See Note Imaging Radiology Impressions: ITS Impressions Hand X-Ray 07/16/23 08:53 IMPRESSION: 1. No fracture or dislocation. 2. Mild degenerative changes of the hand. Medications Medications Current Medications Acetaminophen (Acetaminophen 325 Mg Tablet) 650 mg PO Q6H PRN PRN Reason: Headache/Pain Mild Scale (1-3) Last Admin: 07/15/23 05:18 Dose: 650 mg Al Hydroxide/Mg Hydroxide (Magnesium Hydrox/Alum Hydrox 30 Ml Oral.Susp) 30 ml PO Q6H PRN PRN Reason: Heartburn/Nausea Albuterol Sulfate (Albuterol Sulfate 90 Mcg 8 Gm Inhaler) 2 puff INHALE Q4H PRN PRN Reason: Wheezing Amlodipine Besylate (Amlodipine Besylate 2.5 Mg Tablet) 2.5 mg PO DAILY [facility]; Protocol Last Admin: 07/21/23 09:48 Dose: Not Given Aripiprazole (Aripiprazole 30 Mg Tablet) 30 mg PO DAILY [facility] Last Admin: 07/21/23 09:48 Dose: Not Given Benztropine Mesylate (Benztropine Mesylate 1 Mg Tablet) 1 mg PO BID PRN PRN Reason: Extrapyramidal Effects Last Admin: 07/18/23 06:47 Dose: 1 mg Clonazepam (Clonazepam 1 Mg Tablet) 2 mg PO BEDTIME [facility] Last Admin: 07/20/23 21:15 Dose: Not Given Divalproex Sodium (Divalproex Sodium 500 Mg Tablet.) 500 mg PO DAILY [facility] Last Admin: 07/21/23 09:48 Dose: Not Given Divalproex Sodium (Divalproex Sodium 250 Mg Tablet.) 750 mg PO BEDTIME [facility] Last Admin: 07/20/23 21:12 Dose: 750 mg Fluticasone/Umeclidinium/Vilanterol (Fluticasone/Umeclidinium/Vilanterol 200/62.5/25 Blst.W.Dev) 1 puff INHALE RDAILY [facility] Last Admin: 07/21/23 09:48 Dose: Not Given Hydroxyzine HCl (Hydroxyzine Hcl 25 Mg Tablet) 25 mg PO Q6H PRN PRN Reason: Anxiety Last Admin: 07/17/23 00:32 Dose: 25 mg Ibuprofen (Ibuprofen 400 Mg Tablet) 800 mg PO Q8H PRN PRN Reason: Pain, Moderate(Pain Scale 4-6) Last Admin: 07/20/23 17:07 Dose: 800 mg Levothyroxine Sodium (Levothyroxine Sodium 100 Mcg Tablet) 100 mcg PO DAILY@0600 [facility] Last Admin: 07/21/23 06:00 Dose: 100 mcg Loratadine (Loratadine 10 Mg Tablet) 10 mg PO DAILY [facility] Last Admin: 07/21/23 09:48 Dose: Not Given Magnesium Hydroxide (Milk Of Magnesia 30 Ml Oral.Susp) 30 ml PO DAILY PRN PRN Reason: Constipation Olanzapine (Olanzapine Odt 10 Mg Tab.Rapdis) 10 mg TRANSLINGU BID PRN PRN Reason: florentin Last Admin: 07/18/23 06:35 Dose: 10 mg Trazodone HCl (Trazodone Hcl 50 Mg Tablet) 50 mg PO BEDTIME MRX1 PRN PRN Reason: Insomnia Last Admin: 07/17/23 00:32 Dose: 50 mg Allergies Allergies Allergy/AdvReac Type Severity Reaction Status Date / Time Penicillins Allergy Vomiting Verified 07/11/23 17:28 phenytoin Allergy Unknown Verified 07/11/23 17:30 rosuvastatin Allergy Chest Pain Verified 07/11/23 17:32 aspirin AdvReac Gastrointestinal Verified 07/11/23 17:33 Upset Assessment & Plan Assessment & Plan (1) Bipolar disorder: Qualifiers: Active/Remission status: currently active Current bipolar episode type: manic Current episode severity: severe Psychotic features: with psychotic features Qualified Code(s): F31.2 - Bipolar disorder, current episode manic severe with psychotic features Code(s): F31.9 - Bipolar disorder, unspecified (2) PTSD (post-traumatic stress disorder): Status: Acute Code(s): F43.10 - Post-traumatic stress disorder, unspecified Plan Patient is a 63 year old female with hx of Bipolar d/o and PTSD who self presented to [facility] ER d/t disorganized thinking secondary to florentin. Plan: 07/16. pt agreed to take depakote 1000mg. had chemical restrain this morning haldol 5mg IM, ativan 2mg IM. 07/17 received another IM olanzapine 10mg and ativan 2mg IM on 07/16 at around 5pm due to combative behaviors towards peer. continue current plan. Increase Depakote 500 qam and 750 mg qhs, rest the same on July 18. Section 7 and 8 filed on July 19. On July 20 I offer her to change her Abilify to different antipsychotics since it has not working she remains manic. Reason for continued inpatient stay Substantial Risk for: inability to function, rapid decompensation and med/psych decompensation Time Spent With Patient Time: Total time managing care of this patient today __20__ minutes.
[2023-07-21 18:00] VITALS: BP 140/79; PULSE 81; RESP 18; TEMP 36.3; O2SAT 100
[2023-07-21] MEDS: Ibuprofen 400 MG TABLET 800 MG PO (21:42)
[2023-07-21] MEDS: Divalproex Sodium 250 MG TABLET.DR 750 MG PO (21:43)
--- NOTE | 2023-07-21 23:39 | PC.NURSE ---
Patient continues to be intrusive, hyperverbal and tangential, refused HS clonazepam. Non con compliant with CPAP at bedtime, in room resting, will continue to monitor for safety.
[2023-07-22] MEDS: Levothyroxine Sodium 100 MCG TABLET PO (04:37)
[2023-07-22] MEDS: Ibuprofen 400 MG TABLET 800 MG PO ×2 (04:38→20:43)
[2023-07-22 08:55] VITALS: BP 156/99; PULSE 110; RESP 22; TEMP 36.6; O2SAT 100
[2023-07-22] MEDS: Divalproex Sodium 500 MG TABLET.DR PO (09:03)
[2023-07-22] MEDS: ARIPiprazole 30 MG TABLET PO (09:04)
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
[2023-07-22 18:00] VITALS: BP 146/87; PULSE 102; RESP 18; TEMP 36.9; O2SAT 97
[2023-07-22] MEDS: Divalproex Sodium 250 MG TABLET.DR 750 MG PO (20:43)
[2023-07-22] MEDS: clonazePAM 1 MG TABLET 2 MG PO (20:56)
[2023-07-23 06:51] LABS: MANUAL DIFF FLAG NO
[2023-07-23 06:56] LABS: Basophils Percent Auto 0.3 % (0-2); Eosinophils Absolute Auto 0.1 X10*3/uL (0.0-0.4); Eosinophils Percent Auto 1.3 % (0-4); Hematocrit 41.5 % (37.0-47.0); Hemoglobin 13.1 g/dl (12.0-16.0); Imm Gran Abs Auto 0.01 X10*3/uL (0.00-0.03); Imm Gran Pct Auto 0.2 % (0.0-0.4); Lymphocytes Percent Auto 16.3 % (20-40); Mean Corpuscular HGB Conc 31.6 g/dl (31.0-35.0); Mean Corpuscular Hemoglobin 27.5 pg (27.0-33.0); Mean Corpuscular Volume 87.2 fL (80.0-98.0); Mean Platelet Volume 9.6 fL (9.4-12.3); Monocytes Absolute Auto 0.6 X10*3/uL (0.1-1.2); Monocytes Percent Auto 9.3 % (2-11); Neutrophils Absolute Auto 4.4 x10*3/uL (2.0-8.3); Neutrophils Percent Auto 72.6 % (45-73); Platelet Count 342 X10*3/uL (160-400); Red Blood Count 4.76 X10*6/uL (4.20-5.50); Red Cell Distribution Width 14.7 % (11.0-16.0)
[2023-07-23 07:07] LABS: Valproate 103.4 mcg/mL (50.0-100.0)
[2023-07-23 07:18] LABS: Alanine Aminotransferase 25 U/L (0-31); Albumin Level 4.2 g/dL (3.5-5.0); Alkaline Phosphatase 76 U/L (39-117); Anion Gap 11 (12-20); Aspartate Amino Transferase 25 U/L (5-31); Bilirubin Total 0.4 mg/dL (0.0-1.0); Blood Urea Nitrogen 12 mg/dL (9-16); Calcium 9.6 mg/dL (8.4-10.2); Carbon Dioxide 28 mmol/L (22-29); Chloride 109 mmol/L (96-108); Creatinine Clr Calc Pharmacy 69.4; Estimated Glomerular Filt Rate > 60; Glucose Fasting 117 mg/dL (60-99); Potassium 4.1 mmol/L (3.3-5.1); Sodium 144 mmol/L (135-145)
[2023-07-23 07:32] LABS: TSH reflex Free T4 4.82 uIU/mL (0.32-4.0)
[2023-07-23 08:06] LABS: Free T4 (Free Thyroxine) 0.95 ng/dL (0.71-1.85)
[2023-07-23 08:35] VITALS: BP 131/79; PULSE 83; RESP 22; TEMP 36.3; O2SAT 100
[2023-07-23] MEDS: Divalproex Sodium 250 MG TABLET.DR 500 MG PO (08:40)
[2023-07-23] MEDS: ARIPiprazole 30 MG TABLET PO (08:40)
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
[2023-07-23] MEDS: Ibuprofen 400 MG TABLET 800 MG PO (16:19)
[2023-07-23 19:35] VITALS: BP 158/86; PULSE 86; RESP 18; TEMP 36; O2SAT 100
[2023-07-23] MEDS: Divalproex Sodium 500 MG TABLET.DR PO (20:47)
[2023-07-24] MEDS: Ibuprofen 400 MG TABLET 800 MG PO ×3 (01:10→22:37)
[2023-07-24 08:20] VITALS: BP 138/70; PULSE 85; RESP 16; TEMP 36; O2SAT 98
[2023-07-24] MEDS: ARIPiprazole 30 MG TABLET PO (08:31)
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
[2023-07-24 19:00] VITALS: BP 129/70; PULSE 83; RESP 20; TEMP 36.2; O2SAT 100
[2023-07-24] MEDS: Divalproex Sodium Sprinkles 125 MG CAP.DR.SPR 500 MG PO (20:43)
[2023-07-25 08:00] VITALS: BP 144/81; PULSE 80; RESP 18; TEMP 36.1; O2SAT 100
[2023-07-25] MEDS: Divalproex Sodium Sprinkles 125 MG CAP.DR.SPR 500 MG PO (08:31)
[2023-07-25] MEDS: ARIPiprazole 30 MG TABLET PO (08:31)
[2023-07-25] MEDS: Levothyroxine Sodium 100 MCG TABLET PO (08:31)
[2023-07-25 08:43] LABS: Alanine Aminotransferase 22 U/L (0-31); Albumin Level 4.1 g/dL (3.5-5.0); Alkaline Phosphatase 80 U/L (39-117); Aspartate Amino Transferase 22 U/L (5-31); Bilirubin Direct 0.2 mg/dL (0.0-0.5); Bilirubin Total 0.3 mg/dL (0.0-1.0); Total Protein 6.8 g/dL (6.5-8.0)
[2023-07-25 08:58] LABS: Thyroid Stimulating Hormone 14.45 uIU/mL (0.32-4.0)
[2023-07-25] MEDS: Ibuprofen 400 MG TABLET 800 MG PO (12:20)
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
--- NOTE | 2023-07-25 17:08 | PM.EVENT ---
Event Note Date of Service: 07/25/23 Event Note: Pt intrusive with peers and staff. No able to be redirected, increasingly more agitated. Requiring IM Olanzapine 10mg and ativan 2mg IM. Time Spent With Patient Time: Total time managing care of this patient today ____ minutes.
[2023-07-25] MEDS: OLANZapine 10 MG VIAL IM (17:28)
[2023-07-25] MEDS: LORazepam 2 MG/ML VIAL IM (17:29)
--- NOTE | 2023-07-25 17:39 | PM.EVENT ---
Event Note Date of Service: 07/25/23 Event Note: Chemical restraint. signed at 1735. Given olanzapine 10 mg IM and lorazepam 2 mg IM. Patient is lying in bed speaking, mildly drowsy. Lungs with normal expansion. Stable vital signs. Time Spent With Patient Time: Total time managing care of this patient today ____ minutes.
--- NOTE | 2023-07-25 18:39 | PC.NURSE ---
Edilai was disruptive, intrusive, preoccupied this shift. She needed frequent redirections. Took some of the medications at am including Abilify. At evening her behaviors increased. Patient was offered music, quiet time, time out in room. Edilia was redirected for yelling in the kitchen, but not able to redirect. Was throwing items and posturing at staff and was imminent danger to self and others. Pt was chemically and physically restrained from 17:28 to 17:29. Olanzapine 10mg IM and Lorazepam 2mg IM administered. She tolerated this intervention without an issue.
[2023-07-26] MEDS: Ibuprofen 400 MG TABLET 800 MG PO ×2 (06:10→22:04)
[2023-07-26] MEDS: Levothyroxine Sodium 100 MCG TABLET PO (06:10)
[2023-07-26 07:59] LABS: Valproate 45.2 mcg/mL (50.0-100.0)
[2023-07-26 08:00] VITALS: BP 130/69; PULSE 65; RESP 18; TEMP 36.7; O2SAT 100
[2023-07-26] MEDS: ARIPiprazole 30 MG TABLET PO (08:28)
[2023-07-26] MEDS: Divalproex Sodium Sprinkles 125 MG CAP.DR.SPR 500 MG PO ×2 (08:28→22:05)
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
[2023-07-26 18:00] VITALS: BP 119/77; PULSE 75; RESP 18; TEMP 36.4; O2SAT 100
[2023-07-27] MEDS: Levothyroxine Sodium 100 MCG TABLET PO (06:22)
[2023-07-27 08:50] VITALS: BMI 26.3
[2023-07-27 09:00] VITALS: BP 148/87; PULSE 100; RESP 22; TEMP 36.6; O2SAT 99
[2023-07-27] MEDS: Divalproex Sodium Sprinkles 125 MG CAP.DR.SPR 500 MG PO (09:04)
[2023-07-27] MEDS: ARIPiprazole 30 MG TABLET PO (09:06)
[2023-07-27] MEDS: amLODIPine Besylate 2.5 MG TABLET PO (09:06)
[2023-07-27] MEDS: Ibuprofen 400 MG TABLET 800 MG PO ×2 (09:27→20:37)
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
[2023-07-27 14:53] LABS: Anti Nuclear Antibody Screen NEGATIVE (NEGATIVE)
[2023-07-27] MEDS: Acetaminophen 325 MG TABLET 650 MG PO (18:25)
[2023-07-27 19:35] VITALS: BP 152/82; PULSE 75; RESP 18; TEMP 36.2; O2SAT 100
[2023-07-28] MEDS: Levothyroxine Sodium 100 MCG TABLET PO (05:28)
[2023-07-28 06:00] VITALS: BP 145/89; PULSE 94; RESP 16; TEMP 36.2; O2SAT 97
[2023-07-28] MEDS: ARIPiprazole 30 MG TABLET PO (09:16)
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
[2023-07-28] MEDS: Ibuprofen 400 MG TABLET 800 MG PO (11:06)
[2023-07-28] MEDS: Acetaminophen 325 MG TABLET 650 MG PO (15:00)
[2023-07-28 19:22] LABS: Thyrotropin Receptor Antibody <1.00 IU/L (<=2.00)
[2023-07-28 19:30] VITALS: BP 177/80; PULSE 116; RESP 18; TEMP 35.9; O2SAT 99
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
[2023-07-29] MEDS: Levothyroxine Sodium 100 MCG TABLET PO (05:46)
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
[2023-07-29 08:11] VITALS: BP 125/87; PULSE 105; RESP 20; TEMP 2.4; TEMP 36.3; O2SAT 98
[2023-07-29] MEDS: ARIPiprazole 30 MG TABLET PO (08:16)
[2023-07-29] MEDS: OLANZapine 10 MG VIAL IM (17:05)
[2023-07-29] MEDS: LORazepam 2 MG/ML VIAL IM (17:05)
--- NOTE | 2023-07-29 17:28 | PM.EVENT ---
Event Note Date of Service: 07/29/23 Event Note: called to eval after chemical restraint, patient in her room, ambulating, alert, normal respirations, fairly calm. Time Spent With Patient Time: Total time managing care of this patient today ____ minutes.
[2023-07-29 18:00] VITALS: RESP 16
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
[2023-07-30 08:27] VITALS: BP 100/56; PULSE 75; RESP 16; TEMP 36.2; O2SAT 99
[2023-07-30] MEDS: ARIPiprazole 30 MG TABLET PO (08:39)
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
[2023-07-30 18:00] VITALS: BP 142/84; PULSE 89; RESP 18; TEMP 36.8; O2SAT 98
[2023-07-30] MEDS: Acetaminophen 325 MG TABLET 650 MG PO (18:31)
[2023-07-30] MEDS: Ibuprofen 400 MG TABLET 800 MG PO (21:43)
[2023-07-31] MEDS: Levothyroxine Sodium 100 MCG TABLET PO (05:33)
[2023-07-31] MEDS: Ibuprofen 400 MG TABLET 800 MG PO ×2 (05:34→21:09)
[2023-07-31 06:00] VITALS: BP 125/85; PULSE 79; RESP 18; TEMP 36.6; O2SAT 96
[2023-07-31] MEDS: ARIPiprazole 30 MG TABLET PO (08:37)
[2023-07-31] MEDS: Acetaminophen 325 MG TABLET 650 MG PO (08:41)
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
--- NOTE | 2023-07-31 16:08 | PM.EVENT ---
Event Note Date of Service: 07/31/23 Event Note: Consult placed to hospitalist service for evaluation of left foot pain. She is very manic, tangential, perseverating. She was chemically restrained on 07/28 by staff. There were no physical restraints used. She was escorted by security to her room and received IM zyprexa and ativan after refusing PO. For IM administration patient was held by nursing on the upper arms bilaterally. Since then she has been fixating on somatic pains in the feet, hands, arms, stating her body is broken per nursing staff. There were no restraints to the wrists or ankles. Pt has history of chronic tendonosis in the upper extremities (see initial H&P by this author) and osteoarthritis in the left great toe. She is localizing pain to the left great toe and over the 1st metacarpal of the left hand. There is no bony deformity and patient has full passive ROM. She will not actively move thumb when asaked on exam, but on arrival to the unit was holding telephone with left hand with flexion of the thumb noted and was not in distress. She is also ambulating without difficulty. There is no bony abnormality, ecchymosis, or evidence of trauma. At this time there is no medical indication for imaging studies and no evidence of acute injury. Can use tylenol prn for pain if needed. Thank you for allowing me to participate in this consult. Signing off at this time. Please do not hesitate to call for further questions. Time Spent With Patient Time: Total time managing care of this patient today ____ minutes.
[2023-07-31 18:00] VITALS: BP 154/76; PULSE 69; RESP 18; TEMP 36.6; O2SAT 69
[2023-08-01] MEDS: Acetaminophen 325 MG TABLET 650 MG PO ×2 (02:27→08:53)
[2023-08-01] MEDS: Levothyroxine Sodium 100 MCG TABLET PO (05:43)
[2023-08-01 06:00] VITALS: BP 178/77; PULSE 70; RESP 18; TEMP 35.6; O2SAT 99
[2023-08-01] MEDS: ARIPiprazole 30 MG TABLET PO (08:48)
--- NOTE | 2023-08-01 12:21 | P.DS_ITS ---
DS: Providers Provider Date of Service: 08/01/23 Date of admission: 07/11/23 16:10 Date of discharge: 08/01/23 Primary care physician: Unknown Physician Consults: 07/11/23 16:47 Consult to Hospitalist Routine Comment: Consulting Provider: Hospitalist Reason For Exam: medical H&P 07/28/23 15:25 Consult to Hospitalist Routine Comment: Consulting Provider: Hospitalist Reason For Exam: Foot pain 07/31/23 15:20 Consult to Hospitalist Routine Comment: Consulting Provider: Hospitalist Reason For Exam: Foot pain. On section 7 and 8 process DS: Diagnosis Discharge Diagnosis (1) Severe manic bipolar 1 disorder with psychotic behavior: Status: Acute (2) PTSD (post-traumatic stress disorder): Status: Acute DS: Medications Discharge Medications Home Medications: Home Medications Medication Instructions Recorded Confirmed albuterol sulfate 90 mcg/actuation 2 puff inhalation Q4H PRN Wheezing 07/11/23 07/11/23 aerosol inhaler amlodipine 2.5 mg tablet 2.5 mg PO DAILY 07/11/23 07/11/23 aripiprazole 15 mg tablet 15 mg PO 1XD 07/11/23 07/11/23 fluticasone fur. 200 mcg-umeclid 1 ea inhalation DAILY 07/11/23 07/11/23 62.5 mcg-vilant 25 mcg inhalat.powder (Trelegy Ellipta) levothyroxine 100 mcg tablet 100 mcg PO 6XW 07/11/23 07/11/23 (Synthroid) Mental Status Exam Mental Status Exam Patient Appearance: Appropriate Patient Orientation: Person, Place and Situation Level of Consciousness: Awake Patient Behavior: Talkative and Suspicious Mood Description: Hostile Affect Description: Labile Ability to Follow Directions: Poor Speech Pattern: Impoverished and Rapid Hallucinations: None Delusions: Grandiose Thought Process: Racing Thought Content: positive for Perseveration, positive for Loose Associations and positive for Thought Blocking Judgement: Poor Data Data Completed and Pending Completed studies during hospitalization [Text1]: 07/25/23 07/26/23 09:33 07:21 Valproic Acid 45.2 L RANDY Screen NEGATIVE RANDY Titer TNP RANDY Titer 2 TNP RANDY Titer 3 TNP RANDY Pattern TNP RANDY Pattern 2 TNP RANDY Pattern 3 TNP TSH Receptor Ab <1.00 Imaging Diagnostic Imaging Impressions Hand X-Ray 07/16/23 08:53 IMPRESSION: 1. No fracture or dislocation. 2. Mild degenerative changes of the hand. DS: Summary Hospital Course Hospital Course: The patient is a 63-year-old female admitted for manic symptoms, the patient self-referred to [facility] Emergency room asking for help. She was assessed by crisis, she became violent and needed to be chemically restrain. As cyst and transferred here for continuation of care. On intake the patient was grossly manic with racing thoughts, pressured speech, psychosis disorganized behavior such as story feces in a cup and painting her room with feces. She had been agitated several times and needed to be chemically restrained at least 5 times in this facility. Initially she signed herself into an later on she signed a 3 day notice. A Section 7 and 8 was placed. We went to court but unfortunately the asset analyst denied the Section 7 and 8. She is being discharged to the community with paper scripts the patient is still grossly manic and a danger to self or others due to her impaired judgment. Her initial Abilify was increased up to 30 mg and add Depakote and she improved slightly. Time spent discussing smoking cessation with patient: 3 to 10 minutes Status at Discharge Cognitive/behavioral status at discharge: Unable to fully assess due to her florentin Functional status at discharge: independent ambulation Overall status at discharge: patient is not back to baseline Time Spent with Patient Time attestation: Total time managing care of this patient today __30__ minutes. Time spent: Less than 30 minutes Discharge Plan Discharge Anticipated Discharge Date/Time: 08/01/23 12:24 Patient Disposition: Home, Self-Care Discharge Diagnosis: Bipolar disorder most recent episode florentin Referrals: Physician,Unknown J [Primary Care Provider] - 1 Week Discharge Medications: New loratadine 10 mg Tablet 10 mg PO DAILY Qty: 30 0RF ibuprofen 400 mg Tablet 800 mg PO Q8H PRN (Reason: Pain, Moderate(Pain Scale 4-6)) 30 Days Qty: 30 0RF aripiprazole [Abilify] 30 mg Tablet 30 mg PO DAILY 30 Days Qty: 30 0RF divalproex [Depakote] 500 mg tablet,delayed release (DR/EC) 500 mg PO BID Qty: 60 0RF Continued amlodipine 2.5 mg tablet 2.5 mg PO DAILY 30 Days Qty: 30 0RF levothyroxine [Synthroid] 100 mcg tablet 100 mcg PO 6XW 30 Days Qty: 26 0RF albuterol sulfate 90 mcg/actuation HFA aerosol inhaler 2 puff INHALATION Q4H PRN (Reason: Wheezing) 30 Days Qty: 1 0RF Trelegy Ellipta 200-62.5-25 mcg blister with device 1 ea INHALATION DAILY 30 Days Qty: 30 0RF Discontinued aripiprazole 15 mg Tablet 15 mg PO 1XD Discharge Orders: Discharge Order (Routine); Ordered 08/01/23 Ordered By: Dwight Natarajan Diet: Advance to usual diet Activity on Discharge: As tolerated Stand Alone Forms: Patient Portal Discharge page Care Plan Goals: CARE PLAN GOALS WERE NOT ACHIEVED SINCE WE WERE COURT ORDERED TO DISCHARGE HER Health Concerns: CONTINUE WITH PRIMARY CARE PHYSICIAN AND OUTPATIENT PROVIDERS Plan of Treatment: CONTINUE WITH MEDICATION MANAGEMENT Assessment: ELDERLY FEMALE WITH A PAST HISTORY OF BIPOLAR DISORDER ADMITTED FOR [facility] WITH PSYCHOSIS, GROSSLY DISORGANIZED WHO SIGNED HERSELF ON A CONDITIONAL VOLUNTARY AND INSIGHT A 3 DAY NOTICE. WE FILE A SECTION 7 AND 8 BUT UNFORTUNATELY THE PATIENT IS COURT ORDERED TO BE DISCHARGED TO SELF. CURRENTLY GROSSLY MANIC
== END 2023-08-01 13:25 | disposition home or self-care (01) | DRG 753 ==
PROVIDERS: Clinical Nurse Specialist Psychiatric/Mental Health, Adult; Physician Assistant; Psychiatry & Neurology Psychiatry; Social Worker; Admitting Provider Psychiatry & Neurology Psychiatry; Visit Provider Psychiatry & Neurology Psychiatry
DX: F31.2 Bipolar disorder, current episode manic severe with psychotic features (principal); G62.9 Polyneuropathy, unspecified; I10 Essential (primary) hypertension; J44.9 Chronic obstructive pulmonary disease, unspecified; E89.0 Postprocedural hypothyroidism; F43.10 Post-traumatic stress disorder, unspecified; Z20.822 Contact with and (suspected) exposure to COVID-19; Z87.891 Personal history of nicotine dependence; Z79.890 Hormone replacement therapy; Z79.899 Other long term (current) drug therapy
CPT/HCPCS: 36415; 73120; 80053; 80061; 80076; 80164; 82607; 83036; 83520; 84439; 84443; 85025; 86038; 87507; 87635; 93005; 94660; J1630; J2060; J2359

== ENCOUNTER → 2023-07-11 16:10 | Outpatient (BNV) | payer BC, SELFPAY | PROVIDERS: Admitting Provider Psychiatry & Neurology Psychiatry; Visit Provider Psychiatry & Neurology Psychiatry | DX: F31.2 Bipolar disorder, current episode manic severe with psychotic features (principal); F43.11 Post-traumatic stress disorder, acute | CPT/HCPCS: 99232 ==

== ENCOUNTER → 2023-07-11 16:10 | Outpatient (BNV) | payer BC, SELFPAY | PROVIDERS: Admitting Provider Psychiatry & Neurology Psychiatry; Visit Provider Physician Assistant | DX: Z00.00 Encounter for general adult medical examination without abnormal findings (principal) | CPT/HCPCS: 99429; 99499 ==

== ENCOUNTER → 2023-07-11 16:10 | Outpatient (BNV) | payer BC, SELFPAY | PROVIDERS: Admitting Provider Psychiatry & Neurology Psychiatry; Visit Provider Social Worker | DX: F31.2 Bipolar disorder, current episode manic severe with psychotic features (principal); F43.11 Post-traumatic stress disorder, acute | CPT/HCPCS: 90792; 99231; 99232; 99238; 99499 ==